=== PATIENT | male | born 1960 | race Caucasian/White ===

== ENCOUNTER 2017-11-22 14:49 | Inpatient (IN) | payer OTHER ==
[~2017-11-22] VITALS: Ht 162.6 cm; Wt 66.8 kg
[~2017-11-22 14:49] MED LIST: ASPI-390 PO; OXYC-57 PO
[2017-11-22] MEDS ORDERED: LABETALOL HCL IV 5 MG/ML 20ML IV STA (15:08)
--- NOTE | 2017-11-22 15:32 | EMERGENCY ROOM VISIT NOTE ---
History First contact with patient: 15:05 Chief Complaint: NEURO SYMPTOMS Stated Complaint: RIGHT HAND & RIGHT LEG NOT RIGHT, DIZZY History of Present Illness The patient is a 57 year old male who presents to the Emergency Room with complaints of right sided weakness that started this morning at 4 am. He reports trying to get out of bed this morning but could not move his lower extremity. He did also have some dizziness. His symptoms waxed and waned through out the day. Walking proved to be difficult. He had some weakness at around 1300. He denies any chest pain or shortness of breath. Denies dysarthria , dysphagia. Denies vision changes. Denies bowel/bladder incontinence. He smokes 2 PPD. He does not see a family doctor. He does have a history of uncontrolled htn- does not taking any meds Denies personal history of strokes/[place], Does have a family history. Review of Systems See above for pertinent positives & negatives. A total of 10 systems reviewed and were otherwise negative. Past Medical/Surgical History Medical Problems: (1) Cervical stenosis of spinal canal (2) Chest pain (3) HTN (hypertension) Surgical Problems: (1) Hx of cervical spine surgery Family History Hypertension Social History Smoking Status: Current Every Day Smoker Alcohol Use: none Drug Use: none Marital Status: Housing Status: lives with family Occupation Status: employed Current/Historical Medications Scheduled Aspirin (Aspirin EC Low Dose), 81 MG PO QAM Atorvastatin (Lipitor), 40 MG PO QAM Clopidogrel Bisulfate (Clopidogrel), 75 MG PO QAM Lisinopril (Lisinopril), 5 MG PO DAILY Metoprolol Tartrate (Lopressor) (Lopressor), 50 MG PO BID Nicotine (Nicoderm Cq), 1 PATCH EXT QAM Physical Exam Vital Signs Date Time Temp Pulse Resp B/P (MAP) Pulse Ox O2 Delivery O2 Flow Rate FiO2 11/22/17 17:03 89 11/22/17 16:50 211/136 11/22/17 16:44 76 18 231/131 98 Room Air 11/22/17 15:48 72 20 231/135 95 Room Air 11/22/17 15:44 76 24 249/139 95 Room Air 11/22/17 15:43 Room Air 11/22/17 15:31 80 24 230/140 96 11/22/17 15:06 87 11/22/17 15:01 97 28 249/148 97 Room Air 11/22/17 14:53 36.6 100 20 258/134 97 Room Air Physical Exam GENERAL: Patient is awake alert in no acute distress EYES: The conjunctivae are clear. The pupils are round and reactive. EARS, NOSE, MOUTH AND THROAT: Mucous membranes are moist NECK: The neck is nontender and supple. RESPIRATORY: Normal respiratory effort is noted there is no evidence of wheezing rhonchi or rales CARDIOVASCULAR: Regular rate and rhythm noted there no murmurs rubs or gallops normal S1 normal S2 GASTROINTESTINAL: The abdomen is soft. Bowel sounds are present in all quadrants. Abdomen is nontender PELVIS: The Pelvis is stable. No tenderness to palpation is noted. BACK: no CVA tenderness MUSCULOSKELETAL/EXTREMITIES: Full ROM at all extremities SKIN: There is no obvious evidence of any rash. There are no petechiae, pallor or cyanosis noted. NEUROLOGIC: Patient is awake alert and oriented x3, CN II-XII intact, Strength is 5/5 in upper and lower extremities, Sensation is intact grossly, normal [id number], no dysdiadochokinesis Medical Decision & Procedures Laboratory Results Test 11/22/17 15:24 11/22/17 15:45 Prothrombin Time 10.0 SECONDS (9.0-12.0) Prothromb Time International Ratio 1.0 (0.9-1.1) Activated Partial Thromboplast Time 25.0 SECONDS (21.0-31.0) Partial Thromboplastin Ratio 1.0 Total Bilirubin 0.2 mg/dl (0.2-1) Direct Bilirubin < 0.1 mg/dl (0-0.2) Aspartate Amino Transf (AST/SGOT) 15 U/L (15-37) Alanine Aminotransferase (ALT/SGPT) 22 U/L (12-78) Alkaline Phosphatase 61 U/L (45-117) Total Creatine Kinase 174 U/L (39-308) Creatine Kinase MB 2.9 ng/ml (0.5-3.6) Creatine Kinase MB Ratio 1.7 (0-3.0) Total Protein 8.1 gm/dl (6.4-8.2) Albumin 4.0 gm/dl (3.4-5.0) Lipase 109 U/L (73-393) Thyroid Stimulating Hormone (TSH) 2.630 uIu/ml (0.300-4.500) Hepatitis C Antibody Screen NEG (NEG) Urine Color YELLOW Urine Appearance CLEAR (CLEAR) Urine pH 7.0 (4.5-7.5) Urine Specific [place] 1.007 (1.000-1.030) Urine Protein NEG (NEG) Urine Glucose (UA) NEG (NEG) Urine Ketones NEG (NEG) Urine Occult Blood NEG (NEG) Urine Nitrite NEG (NEG) Urine Bilirubin NEG (NEG) Urine Urobilinogen NEG (NEG) Urine Leukocyte Esterase NEG (NEG) Urine WBC (Auto) 0 /hpf (0-5) Urine RBC (Auto) 0-4 /hpf (0-4) Urine Hyaline Casts (Auto) 0 /lpf (0-5) Urine Epithelial Cells (Auto) 0-5 /lpf (0-5) Urine Bacteria (Auto) NEG (NEG) Medications Administered Medications (Trade) Dose Ordered Sig/Song Route Start Time Stop Time Status Last Admin Dose Admin Labetalol HCl (Normodyne IV) 20 mg NOW STAT IV 11/22/17 15:08 11/22/17 15:11 DC 11/22/17 15:33 20 MG Hydralazine HCl (HydrALAZINE INJ) 10 mg NOW STAT IV. 11/22/17 16:05 11/22/17 16:06 DC 11/22/17 16:46 10 MG Aspirin (Aspirin Chew) 324 mg NOW STAT PO 11/22/17 16:18 11/22/17 16:19 DC 11/22/17 16:48 324 MG Medical Decision This is a 57 y/o M who presents with right arm/leg weakness that waxes and wanes x 10 hours. DDx: TIA, CVA, Infection, hypoglycemia, [place], metabolic derangements etc. His blood pressure was elevated on presentation at 240/130's. This was concerning for hypertensive emergency given neurological sx. He normally runs high (200/110). His exam in the ER does not show any focal weakness or deficits. EKG was normal. Head CT was negative for acute pathologies. Chest Xray was negative. CBC, CMP, U/A and Coags were normal. He was given Labetalol and Hydralazine in the ER. The case was discussed with [facility] for further evaluation. MRI was pending at time of consultation with Medicine. Blood Pressure Screening Patient's blood pressure: Elevated blood pressure Impression Primary Impression: Hypertensive emergency Additional Impression: Right sided weakness Departure Information Dispostion Being Evaluated By Hospitalist Prescriptions Lisinopril (Lisinopril) 5 Mg Tab 5 MG PO DAILY, #30 Prov: Matt Medina M.D. 11/25/17 Aspirin (Aspirin EC Low Dose) 81 Mg Ectab 81 MG PO QAM for 30 Days, #30 Prov: Matt Medina M.D. 11/24/17 Metoprolol Tartrate (Lopressor) (Lopressor) 50 Mg Tab 50 MG PO BID for 30 Days, #60 TAB Prov: Matt Medina M.D. 11/24/17 Atorvastatin (LIPITOR) 40 Mg Tab 40 MG PO QAM for 30 Days, #30 TAB Prov: Matt Medina M.D. 11/24/17 Clopidogrel Bisulfate (Clopidogrel) 75 Mg Tab 75 MG PO QAM for 30 Days, #30 TAB Continue for 3 months and then stop. Prov: Matt Medina M.D. 11/24/17 Nicotine (NICODERM CQ) 21 Mg/24 Hr Dis 1 PATCH EXT QAM for 30 Days, #30 Prov: Matt Medina M.D. 11/24/17 Referrals Scotty Wick PA-C (PCP) Patient Instructions My [facility] Problem Qualifiers
[2017-11-22 15:39] LABS: BASO % 0.2 %; BASO ABS # 0.02 K/uL (0-0.2); EOS % 2.6 %; EOS ABS # 0.24 K/uL (0-0.5); HEMATOCRIT 44.9 % (42-52); HEMOGLOBIN 15.5 g/dL (14.0-18.0); IG# 0.02 K/uL (0.00-0.02); LYMPH % 36.3 %; LYMPH ABS # 3.31 K/uL (1.2-3.4); MEAN CELL VOLUME 87.5 fL (80-100); MEAN CORPUSCULAR HEMOGLOBIN 30.2 pg (25-34); MEAN CORPUSCULAR HGB CONC 34.5 g/dl (32-36); MEAN PLATELET VOLUME 9.6 fL (7.4-10.4); MONO % 6.5 %; MONO ABS # 0.59 K/uL (0.11-0.59); NEUT % 54.2 %; NEUT ABS # 4.95 K/uL (1.4-6.5); PLATELET COUNT 301 K/uL (130-400); WHITE BLOOD COUNT 9.13 K/uL (4.8-10.8)
--- NOTE | 2017-11-22 15:45 | DIAGNOSTIC IMAGING REPORT ---
CHEST ONE VIEW PORTABLE CLINICAL HISTORY: Altered mental status. Weakness. COMPARISON STUDY: 01/07/2014 FINDINGS: The cardiac and mediastinal contours are normal. There is no evidence of focal pulmonary consolidation. There is no evidence of failure. No pleural effusions are visualized.[ There are postsurgical changes present within the cervical spine IMPRESSION: No active disease in the chest. Electronically signed by: Shreyas Amaral M.D. 11/22/2017 3:44 PM Dictated Date/Time: 11/22/2017 3:44 PM
--- NOTE | 2017-11-22 16:02 | DIAGNOSTIC IMAGING REPORT ---
HEAD WITHOUT CONTRAST (CT) CLINICAL HISTORY: 57 years-old Male with EVALUATE ALTERED MENTAL STATUS/WEAKNESS. Acutely altered mental status TECHNIQUE: Multiple axial CT images of the head were obtained without contrast. A dose lowering technique was utilized adhering to the principles of ALARA. CT DOSE: 614.27 mGy.cm COMPARISON: CT head 01/15/2014. FINDINGS: No acute intracranial hemorrhage, midline shift, intracranial mass, hydrocephalus, territorial ischemia or abnormal extra-axial collection. Ill-defined areas of low-attenuation within the periventricular subcortical white matter have progressed from prior study. Senescent calcifications of the lentiform nuclei. Vascular calcifications are seen at the level of the skull base. The calvarium is intact. The paranasal sinuses, mastoid air cells, and middle ear cavities are clear. IMPRESSION: 1. No acute intracranial abnormality. 2. Progression of ill-defined subcortical and periventricular areas of ill-defined low-attenuation from comparison study dated 01/15/2014 suggest underlying chronic microvascular ischemic changes. The above report was generated using voice recognition software. It may contain grammatical, syntax or spelling errors. Electronically signed by: Odilon Zarate M.D. 11/22/2017 4:01 PM Dictated Date/Time: 11/22/2017 3:58 PM
[2017-11-22] MEDS ORDERED: HydrALAZINE HCL 20 MG/ML VIAL IV. STA ×2 (16:05→17:26)
[2017-11-22 16:08] LABS: ALT/SGPT 22 U/L (12-78); BLOOD UREA NITROGEN 13 mg/dl (7-18); CALCIUM 9.2 mg/dl (8.5-10.1); CARBON DIOXIDE 26 mmol/L (21-32); CREATININE 1.28 mg/dl (0.60-1.40); GLUCOSE 89 mg/dl (70-99); LIPASE 109 U/L (73-393); POTASSIUM 4.1 mmol/L (3.5-5.1); SODIUM 137 mmol/L (136-145)
[2017-11-22 16:16] LABS: ALKALINE PHOSPHATASE 61 U/L (45-117); AST/SGOT 15 U/L (15-37); CKMB 2.9 ng/ml (0.5-3.6); TOTAL PROTEIN 8.1 gm/dl (6.4-8.2)
[2017-11-22] MEDS ORDERED: ASPIRIN 81 MG CHEW PO STA (16:18)
--- NOTE | 2017-11-22 16:58 | DIAGNOSTIC IMAGING REPORT ---
BRAIN WITHOUT CONTRAST HISTORY: 57 years-old Male stroke sx acute strokelike symptoms with decreased motor function of the right upper and lower extremities. COMPARISON: CT head of same day TECHNIQUE: Multiplanar multisequence MRI of the brain was obtained without contrast FINDINGS: The large [id number] news video editor localizer images demonstrate no gross abnormality. The midline structures including the corpus callosum, brainstem, optic chiasm, pituitary and pineal glands are unremarkable the sagittal T1 series. No cerebellar tonsillar herniation. Degenerative changes of the cervical spine are noted. Mild adenoid tonsillar thickening suggests tonsillar hyperplasia. There is no restricted diffusion to suggest acute or subacute infarction. There are 3 4 mm foci of mildly increased signal on the diffusion-weighted series involving the bilateral frontal lobes as seen on images 18 and 19 of series 4 with corresponding increased signal on the ADC map and T2 series suggesting T2 shine through. There is a 4 mm focus of increased T2 signal of the left parietal lobe, image 17 series 4 with intermediate signal on ADC series and increased T2/FLAIR signal. No acute intracranial hemorrhage, midline shift, abnormal extra-axial collections or hydrocephalus. Moderate multifocal areas of T2/FLAIR prolongation noted within the periventricular, deep and subcortical white matter of the cerebral hemispheres bilaterally. T2 hyperintense focus with intermediate FLAIR signal involves the mid right cerebellar hemisphere measuring 6 x 6 x 6 mm nicely seen on image 18 series 7 and image 7 series 5. This lesion appears to be somewhat multicystic with possibly a thin internal septation on the axial T2 series. Major flow voids at the level of the skull base appear patent. Mastoid air cells are clear. The orbits, scalp, calvarium and soft tissues are unremarkable. 10 x 7 mm T2 hyperintense ovoid focus involves the left nasopharynx in the region of the adenoid tonsils. IMPRESSION: 1. 4 mm focus of increased T2 and diffusion-weighted signal within the left parietal lobe demonstrates intermediate signal on the ADC series suspicious for tiny subacute lacunar infarction. No large acute or subacute infarction identified. 2. Moderate chronic microvascular ischemic changes. 3. 6 mm focus of increased T2/FLAIR signal within the mid right cerebellar hemisphere may reflect gliosis from remote lacunar infarction however demonstrates a somewhat atypical appearance. Confirmation with a follow-up brain MRI with contrast could be considered. 4. 10 mm ovoid cystic lesion of the left nasopharynx. The above report was generated using voice recognition software. It may contain grammatical, syntax or spelling errors. Electronically signed by: Odilon Zarate M.D. 11/22/2017 4:57 PM Dictated Date/Time: 11/22/2017 4:41 PM
--- NOTE | 2017-11-22 17:31 | EMERGENCY ROOM VISIT NOTE ---
History Report prepared by Kenny: Yaz Dial Under the Supervision of: Dr. Oneal Maldonado D.O. First contact with patient: 15:05 Chief Complaint: NEURO SYMPTOMS Stated Complaint: RIGHT HAND & RIGHT LEG NOT RIGHT, DIZZY Nursing Triage Summary: This morning he went to get out of bed and his right leg wouldn't work. This occured at [id number]. He returned to bed. He said he got back up at 0730. He states "My right leg wouldn't work". He sat in a chair at that point. When he attempted to go to the bathroom he relates "I was dragging it". He relates "I went to do paperwork and I couldn't read what I was writing." He relates "My hand never really got better." He went to [facility] by driving. "I shouldn't have drove. I was lightheaded. I was probably across the road more than I was on it. " He states "I dropped my coffee and when I went to clean it up, I couldn't get back up." History of Present Illness The patient is a 57 year old male who presents to the Emergency Room with complaints of waxing and waning right sided weakness starting 11 hours ago. The patient woke up from sleep around 0400 in the morning and found that his right leg would not work properly. This weakness has been waxing and waning throughout the day. He also reports right arm weakness. He has had difficulty using his right hand and holding objects. He has felt unsteady on his feet. This weakness is now resolved. He last felt weak around 2 hours ago. The patient denies any facial droop or speech changes. He currently smokes 2 packs per day. Source of History: patient Onset: 11 hours ago Position: arm (right), leg (right) Quality: other (weakness) Timing: waxes/wanes Note: Pt denies facial droop, speech changes. Review of Systems See HPI for pertinent positives & negatives. A total of 10 systems reviewed and were otherwise negative. Past Medical & Surgical Medical Problems: (1) HTN (hypertension) (2) No known problems (3) Right sided weakness Family History Hypertension Social History Smoking Status: Current Every Day Smoker Occupation Status: employed Current/Historical Medications No Active Prescriptions or Reported Meds Allergies Coded Allergies: No Known Allergies (Unverified , 11/22/17) Physical Exam Vital Signs Date Time Temp Pulse Resp B/P (MAP) Pulse Ox O2 Delivery O2 Flow Rate FiO2 11/22/17 17:33 85 18 195/112 97 Room Air 11/22/17 17:03 89 11/22/17 16:50 211/136 11/22/17 16:44 76 18 231/131 98 Room Air 11/22/17 15:48 72 20 231/135 95 Room Air 11/22/17 15:44 76 24 249/139 95 Room Air 11/22/17 15:43 Room Air 11/22/17 15:31 80 24 230/140 96 11/22/17 15:06 87 11/22/17 15:01 97 28 249/148 97 Room Air 11/22/17 14:53 36.6 100 20 258/134 97 Room Air Physical Exam VITAL SIGNS: were reviewed as above. GENERAL:Non-toxic in appearance. SKIN: Warm dry and pink. HEAD: Normocephalic and atraumatic. OROPHARYNX: Is clear and moist NECK: Supple without lymphadenopathy or meningismus. LUNGS: clear. HEART: Regular rate and rhythm. ABDOMEN: Soft and nontender. EXTREMITIES: Warm and well perfused. NEUROLOGICALLY: Awake alert and oriented without focal deficit. Cranial nerves 2 -12 are intact. There is no pronator drift. Cerebellar testing is within normal limits. There is no nystagmus. There is no facial droop. Speech is clear. Vision is grossly normal. MUSCULOSKELETAL: Good muscle tone. No evidence of trauma. Medical Decision & Procedures ER Provider Diagnostic Interpretation: X ray results and stated below per my interpretation and radiology interpretation. Radiology results as stated below per my review and radiologist interpretation: CHEST ONE VIEW PORTABLE CLINICAL HISTORY: Altered mental status. Weakness. COMPARISON STUDY: 01/07/2014 FINDINGS: The cardiac and mediastinal contours are normal. There is no evidence of focal pulmonary consolidation. There is no evidence of failure. No pleural effusions are visualized.[ There are postsurgical changes present within the cervical spine IMPRESSION: No active disease in the chest. Electronically signed by: Shreyas Amaral M.D. 11/22/2017 3:44 PM Dictated Date/Time: 11/22/2017 3:44 PM HEAD WITHOUT CONTRAST (CT) CLINICAL HISTORY: 57 years-old Male with EVALUATE ALTERED MENTAL STATUS/WEAKNESS. Acutely altered mental status TECHNIQUE: Multiple axial CT images of the head were obtained without contrast. A dose lowering technique was utilized adhering to the principles of ALARA. CT DOSE: 614.27 mGy.cm COMPARISON: CT head 01/15/2014. FINDINGS: No acute intracranial hemorrhage, midline shift, intracranial mass, hydrocephalus, territorial ischemia or abnormal extra-axial collection. Ill-defined areas of low-attenuation within the periventricular subcortical white matter have progressed from prior study. Senescent calcifications of the lentiform nuclei. Vascular calcifications are seen at the level of the skull base. The calvarium is intact. The paranasal sinuses, mastoid air cells, and middle ear cavities are clear. IMPRESSION: 1. No acute intracranial abnormality. 2. Progression of ill-defined subcortical and periventricular areas of ill-defined low-attenuation from comparison study dated 01/15/2014 suggest underlying chronic microvascular ischemic changes. The above report was generated using voice recognition software. It may contain grammatical, syntax or spelling errors. Electronically signed by: Odilon Zarate M.D. 11/22/2017 4:01 PM Dictated Date/Time: 11/22/2017 3:58 PM BRAIN WITHOUT CONTRAST HISTORY: 57 years-old Male stroke sx acute strokelike symptoms with decreased motor function of the right upper and lower extremities. COMPARISON: CT head of same day TECHNIQUE: Multiplanar multisequence MRI of the brain was obtained without contrast FINDINGS: The large gkavk-ta-lkay milking worker localizer images demonstrate no gross abnormality. The midline structures including the corpus callosum, brainstem, optic chiasm, pituitary and pineal glands are unremarkable the sagittal T1 series. No cerebellar tonsillar herniation. Degenerative changes of the cervical spine are noted. Mild adenoid tonsillar thickening suggests tonsillar hyperplasia. There is no restricted diffusion to suggest acute or subacute infarction. There are 3 4 mm foci of mildly increased signal on the diffusion-weighted series involving the bilateral frontal lobes as seen on images 18 and 19 of series 4 with corresponding increased signal on the ADC map and T2 series suggesting T2 shine through. There is a 4 mm focus of increased T2 signal of the left parietal lobe, image 17 series 4 with intermediate signal on ADC series and increased T2/FLAIR signal. No acute intracranial hemorrhage, midline shift, abnormal extra-axial collections or hydrocephalus. Moderate multifocal areas of T2/FLAIR prolongation noted within the periventricular, deep and subcortical white matter of the cerebral hemispheres bilaterally. T2 hyperintense focus with intermediate FLAIR signal involves the mid right cerebellar hemisphere measuring 6 x 6 x 6 mm nicely seen on image 18 series 7 and image 7 series 5. This lesion appears to be somewhat multicystic with possibly a thin internal septation on the axial T2 series. Major flow voids at the level of the skull base appear patent. Mastoid air cells are clear. The orbits, scalp, calvarium and soft tissues are unremarkable. 10 x 7 mm T2 hyperintense ovoid focus involves the left nasopharynx in the region of the adenoid tonsils. IMPRESSION: 1. 4 mm focus of increased T2 and diffusion-weighted signal within the left parietal lobe demonstrates intermediate signal on the ADC series suspicious for tiny subacute lacunar infarction. No large acute or subacute infarction identified. 2. Moderate chronic microvascular ischemic changes. 3. 6 mm focus of increased T2/FLAIR signal within the mid right cerebellar hemisphere may reflect gliosis from remote lacunar infarction however demonstrates a somewhat atypical appearance. Confirmation with a follow-up brain MRI with contrast could be considered. 4. 10 mm ovoid cystic lesion of the left nasopharynx. The above report was generated using voice recognition software. It may contain grammatical, syntax or spelling errors. Electronically signed by: Odilon Zarate M.D. 11/22/2017 4:57 PM Dictated Date/Time: 11/22/2017 4:41 PM Laboratory Results 11/22/17 15:24 Red Blood Count 5.13, Mean Corpuscular Volume 87.5, Mean Corpuscular Hemoglobin 30.2, Mean Corpuscular Hemoglobin Concent 34.5, Mean Platelet Volume 9.6, Neutrophils (%) (Auto) 54.2, Lymphocytes (%) (Auto) 36.3, Monocytes (%) (Auto) 6.5, Eosinophils (%) (Auto) 2.6, Basophils (%) (Auto) 0.2, Neutrophils # (Auto) 4.95, Lymphocytes # (Auto) 3.31, Monocytes # (Auto) 0.59, Eosinophils # (Auto) 0.24, Basophils # (Auto) 0.02 11/22/17 15:24 Test 11/22/17 15:24 11/22/17 15:45 White Blood Count 9.13 K/uL (4.8-10.8) Red Blood Count 5.13 M/uL (4.7-6.1) Hemoglobin 15.5 g/dL (14.0-18.0) Hematocrit 44.9 % (42-52) Mean Corpuscular Volume 87.5 fL (80-100) Mean Corpuscular Hemoglobin 30.2 pg (25-34) Mean Corpuscular Hemoglobin Concent 34.5 g/dl (32-36) Platelet Count 301 K/uL (130-400) Mean Platelet Volume 9.6 fL (7.4-10.4) Neutrophils (%) (Auto) 54.2 % Lymphocytes (%) (Auto) 36.3 % Monocytes (%) (Auto) 6.5 % Eosinophils (%) (Auto) 2.6 % Basophils (%) (Auto) 0.2 % Neutrophils # (Auto) 4.95 K/uL (1.4-6.5) Lymphocytes # (Auto) 3.31 K/uL (1.2-3.4) Monocytes # (Auto) 0.59 K/uL (0.11-0.59) Eosinophils # (Auto) 0.24 K/uL (0-0.5) Basophils # (Auto) 0.02 K/uL (0-0.2) RDW Standard Deviation 45.0 fL (36.4-46.3) RDW Coefficient of Variation 14.0 % (11.5-14.5) Immature Granulocyte % (Auto) 0.2 % Immature Granulocyte # (Auto) 0.02 K/uL (0.00-0.02) Prothrombin Time 10.0 SECONDS (9.0-12.0) Prothromb Time International Ratio 1.0 (0.9-1.1) Activated Partial Thromboplast Time 25.0 SECONDS (21.0-31.0) Partial Thromboplastin Ratio 1.0 Anion Gap 6.0 mmol/L (3-11) Est Creatinine Clear Calc Drug Dose 53.3 ml/min Estimated GFR () 71.5 Estimated GFR (Non- 61.7 BUN/Creatinine Ratio 10.2 (10-20) Calcium Level 9.2 mg/dl (8.5-10.1) Magnesium Level 2.5 mg/dl (1.8-2.4) Total Bilirubin 0.2 mg/dl (0.2-1) Direct Bilirubin < 0.1 mg/dl (0-0.2) Aspartate Amino Transf (AST/SGOT) 15 U/L (15-37) Alanine Aminotransferase (ALT/SGPT) 22 U/L (12-78) Alkaline Phosphatase 61 U/L (45-117) Total Creatine Kinase 174 U/L (39-308) Creatine Kinase MB 2.9 ng/ml (0.5-3.6) Creatine Kinase MB Ratio 1.7 (0-3.0) Troponin I < 0.015 ng/ml (0-0.045) Total Protein 8.1 gm/dl (6.4-8.2) Albumin 4.0 gm/dl (3.4-5.0) Lipase 109 U/L (73-393) Thyroid Stimulating Hormone (TSH) 2.630 uIu/ml (0.300-4.500) Urine Color YELLOW Urine Appearance CLEAR (CLEAR) Urine pH 7.0 (4.5-7.5) Urine Specific [place] 1.007 (1.000-1.030) Urine Protein NEG (NEG) Urine Glucose (UA) NEG (NEG) Urine Ketones NEG (NEG) Urine Occult Blood NEG (NEG) Urine Nitrite NEG (NEG) Urine Bilirubin NEG (NEG) Urine Urobilinogen NEG (NEG) Urine Leukocyte Esterase NEG (NEG) Urine WBC (Auto) 0 /hpf (0-5) Urine RBC (Auto) 0-4 /hpf (0-4) Urine Hyaline Casts (Auto) 0 /lpf (0-5) Urine Epithelial Cells (Auto) 0-5 /lpf (0-5) Urine Bacteria (Auto) NEG (NEG) Laboratory results as stated above per my review. Medications Administered Medications (Trade) Dose Ordered Sig/Song Route Start Time Stop Time Status Last Admin Dose Admin Labetalol HCl (Normodyne IV) 20 mg NOW STAT IV 11/22/17 15:08 11/22/17 15:11 DC 11/22/17 15:33 20 MG Hydralazine HCl (HydrALAZINE INJ) 10 mg NOW STAT IV. 11/22/17 16:05 11/22/17 16:06 DC 11/22/17 16:46 10 MG Aspirin (Aspirin Chew) 324 mg NOW STAT PO 11/22/17 16:18 11/22/17 16:19 DC 11/22/17 16:48 324 MG Hydralazine HCl (HydrALAZINE INJ) 20 mg NOW STAT IV. 11/22/17 17:26 11/22/17 17:27 DC 11/22/17 17:33 20 MG ECG Per My Interpretation Indication: weakness Rate (beats per minute): 93 Rhythm: normal sinus Findings: no ectopy, other (no ST elevation) ED Course 1523: Previous medical records were reviewed. The patient was evaluated in room C6. A complete history and physical examination was performed. 1508: Labetalol HCl 20 mg IV. 1605: Hydralazine HCl 10 mg IV. 1618: Aspirin 324 mg PO. 1626: [facility]'s [facility] He will be evaluated for further management. 1726: Hydralazine HCl 20 mg IV. Medical Decision Differential includes acute coronary syndrome, myocardial infarction, CVA, TIA, anemia, infection, pneumonia, UTI, pyelonephritis, poor nutrition, dehydration, electrolyte disturbance,hypoglycemia. The patient was seen with the resident. This is a 57-year-old male who presents to the ED with a chief complaint of strokelike symptoms. The patient presented stating that his symptoms started 4 AM when he awoke from bed. He states that he got out of bed and his right leg was not working. He also reports that his right arm was not working. He denied having any speech difficulties. The patient states that his symptoms waxed and waned all day. Until around 2:00 where his symptoms seem to have resolved. The patient states that his last symptoms were at 1:00 when he went to sheets and he could not hold his coffee. The patient reports that he does not see a doctor. His normal blood pressure is around 200/110. His blood pressure today is 258 of 134 on his initial evaluation. He reports that he smokes 2 packs per day. His exam did not reveal any focal deficits. His stroke scale was 0. His exam was unremarkable. A 12-lead EKG shows normal sinus rhythm. CT scan of the brain did not show acute process, chest x-ray was negative for acute disease, CBC is normal, complete metabolic panel was normal, coagulation studies are normal and a urinalysis was normal. The patient was treated with IV labetalol 20 mg, this improved his slight tachycardia but his blood pressure remained elevated. He was given hydralazine 10 mg IV and 20mg IV as well as aspirin p.o. The patient will be seen by the hospitalist service for further evaluation and care. MRI did show 2 small subacute infarcts. Medication Reconcilliation Current Medication List: was personally reviewed by me Blood Pressure Screening Patient's blood pressure: Elevated blood pressure Blood pressure disposition: Referred to PCP Consults Time Called: 1619 Consulting Physician: Aurelia Loving PA-C [facility] hospitalist Returned Call: [phone] Patient's case with discussed with her. He will be evaluated for further management. Impression Primary Impression: TIA (transient ischemic attack) Additional Impression: Hypertensive urgency Scribe Attestation The scribe's documentation has been prepared under my direction and personally reviewed by me in its entirety. I confirm that the note above accurately reflects all work, treatment, procedures, and medical decision making performed by me. Departure Information Dispostion Being Evaluated By Hospitalist Prescriptions No Active Prescriptions or Reported Meds Referrals Scotty Wick PA-C (PCP) Patient Instructions My [facility] Problem Qualifiers
[2017-11-22] MEDS ORDERED: ONDANSETRON INJ 2 MG/ML 2 ML VIAL IV PRN (17:45)
[2017-11-22] MEDS ORDERED: NITROGLYCERIN 0.4 MG SL PER TAB CHARGE SL PRN (17:45)
[2017-11-22] MEDS ORDERED: PHARMACIST DISCHARGE MED REC CONSULT PRN (17:45)
[2017-11-22] MEDS ORDERED: METOPROLOL TARTRATE 50 MG TAB PO STA (17:52)
[2017-11-22] MEDS ORDERED: CLOPIDOGREL BISULFATE 300 MG TAB PO STA (17:55)
[2017-11-22] MEDS ORDERED: NURSING VERBAL MED ORDER ONE (18:45)
[2017-11-22 18:48] VITALS: BP 171/89; PULSE 81; TEMP 36.7; O2SAT 96
[2017-11-22 19:07] VITALS: BP 171/89; PULSE 81; TEMP 36.7; O2SAT 96; Ht 162.6 cm; Wt 66.8 kg
--- NOTE | 2017-11-22 19:21 | History and Physical ---
History & Physical Date & Time of Service: Nov 22, 2017 at 18:07 Chief Complaint: Right Hand & Right Leg Not Right, Dizzy Primary Care Physician: No Doctor, Assigned History of Present Illness Source: patient, clinic records, hospital records Pt is 57 y/o M with PMH HTN, smoker presented to ER with c/o R sided weakness. Patient reports went to bed at 8 PM last night. Woke up this morning at 4 AM as he got out of bed he noticed right leg weakness and was unable to walk. Patient states he was dragging his right leg. He also noticed right arm discomfort and right hand weakness. 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 Reports symptoms getting better and then worse again throughout the day. He dropped his coffee out of his right hand, but down to pick it up and then could not stand back up due to right leg weakness. [place] a little lightheaded this morning , denies syncope or KAPLAN. No prior treatment. Patient reports known history of hypertension however has not followed up with PCP for years and is not currently on any medications. States he gained insurance at the beginning of this year and is assigned to [facility] PCP in [place], however has not yet seen. Patient reports smoking 2 packs a day of cigarettes 40 years. Chewing tobacco once daily. Denies history of known coronary artery disease or stroke in the past. Denies fever/chills, diaphoresis, N/V/D/C, KAPLAN, vision changes, neck pain, CP, SOB, orthopnea, palpitations, cough, sore throat, choking, otalgia, rhinorrhea, abdominal pain, paresthesias, extremity edema, rashes, urinary symptoms. In the ER patient hypertensive to 258/134. Given labetalol 20 mg IV, hydralazine 10 mg IV, aspirin. BP down to 210/117. Another 20 mg of IV hydralazine was ordered. Past Medical/Surgical History Medical Problems: (1) Cervical stenosis of spinal canal Status: Chronic (2) Chest pain Status: Resolved (3) HTN (hypertension) Status: Chronic Surgical Problems: (1) Hx of cervical spine surgery Permanent Comment: C4-C7 anterior cervical discectomy & fusion Status: Resolved Family History Diabetes mellitus FH: CAD (coronary artery disease) Hypertension Social History Smoking Status: Current Every Day Smoker (2 ppd x 40 years) Smokeless Tobacco Use: chews tobacco once daily Alcohol Use: 1-2 beers a month Drug Use: none Housing status: lives alone Occupational Status: employed Allergies Coded Allergies: No Known Allergies (Unverified , 11/22/17) Home Medications No Active Prescriptions or Reported Meds Review of Systems Constitutional: No fever, No chills, No sweats, No weight loss Eyes: No worsening of vision, No eye pain, No redness, No discharge, No diplopia ENT: No hearing loss, No unusual epistaxis, No nasal symptoms, No sore throat, No tinnitus, No trouble swallowing Respiratory: No cough, No sputum, No wheezing, No shortness of breath, No dyspnea on exertion, No dyspnea at rest, No hemoptysis Cardiovascular: No chest pain, No orthopnea, No PND, No edema, No claudication , No palpitations Abdomen: No pain, No nausea, No vomiting, No diarrhea, No constipation, No GI bleeding Musculoskeletal: No joint pain, No muscle pain, No swelling, No calf pain Genitourinary - Male: No hematuria, No dysuria, No urinary frequency, No urinary urgency Neurologic: + problem reported (see HPI) Psychiatric: No depression symptoms, No anxiety, No substance abuse Endocrine: No excessive thirst, No excessive urination Hematologic / Lymphatic: No abnormal bleeding/bruising, No clotting problems, No swollen lymph nodes, No night sweats Integumentary: No rash, No itch Physical Exam Vital Signs Date Time Temp Pulse Resp B/P (MAP) Pulse Ox O2 Delivery O2 Flow Rate FiO2 11/22/17 17:33 85 18 195/112 97 Room Air 11/22/17 17:03 89 11/22/17 16:50 211/136 11/22/17 16:44 76 18 231/131 98 Room Air 11/22/17 15:48 72 20 231/135 95 Room Air 11/22/17 15:44 76 24 249/139 95 Room Air 11/22/17 15:43 Room Air 11/22/17 15:31 80 24 230/140 96 11/22/17 15:06 87 11/22/17 15:01 97 28 249/148 97 Room Air 11/22/17 14:53 36.6 100 20 258/134 97 Room Air General Appearance: WD/WN, no apparent distress Head: normocephalic, atraumatic Eyes: normal inspection, PERRL, EOMI, sclerae normal ENT: hearing grossly normal, pharynx normal, + pertinent finding (mucous membranes moist) Neck: supple, no JVD, trachea midline Respiratory/Chest: lungs clear, normal breath sounds, no respiratory distress Cardiovascular: regular rate, rhythm, no murmur Abdomen/GI: normal bowel sounds, non tender, soft Extremities/Musculoskelatal: normal capillary refill, no pedal edema, non- tender Neurologic/Psych: alert, normal mood/affect, oriented x 3, + pertinent finding (no facial drooping. clear speech, tongue midline, ROM bilateral arms and legs intact. 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 5/5 strength bilateral arms and extremities at this time. negative romberg. with walking pt with staggered gait and rightward drift.) Skin: normal color, warm/dry Diagnostics Laboratory Results Results Past 24 Hours Test 11/22/17 15:24 11/22/17 15:45 Range/Units White Blood Count 9.13 4.8-10.8 K/uL Red Blood Count 5.13 4.7-6.1 M/uL Hemoglobin 15.5 14.0-18.0 g/dL Hematocrit 44.9 42-52 % Mean Corpuscular Volume 87.5 80-100 fL Mean Corpuscular Hemoglobin 30.2 25-34 pg Mean Corpuscular Hemoglobin Concent 34.5 32-36 g/dl Platelet Count 301 130-400 K/uL Mean Platelet Volume 9.6 7.4-10.4 fL Neutrophils (%) (Auto) 54.2 % Lymphocytes (%) (Auto) 36.3 % Monocytes (%) (Auto) 6.5 % Eosinophils (%) (Auto) 2.6 % Basophils (%) (Auto) 0.2 % Neutrophils # (Auto) 4.95 1.4-6.5 K/uL Lymphocytes # (Auto) 3.31 1.2-3.4 K/uL Monocytes # (Auto) 0.59 0.11-0.59 K/uL Eosinophils # (Auto) 0.24 0-0.5 K/uL Basophils # (Auto) 0.02 0-0.2 K/uL RDW Standard Deviation 45.0 36.4-46.3 fL RDW Coefficient of Variation 14.0 11.5-14.5 % Immature Granulocyte % (Auto) 0.2 % Immature Granulocyte # (Auto) 0.02 0.00-0.02 K/uL Prothrombin Time 10.0 9.0-12.0 SECONDS Prothromb Time International Ratio 1.0 0.9-1.1 Activated Partial Thromboplast Time 25.0 21.0-31.0 SECONDS Partial Thromboplastin Ratio 1.0 Sodium Level 137 136-145 mmol/L Potassium Level 4.1 3.5-5.1 mmol/L Chloride Level 105 98-107 mmol/L Carbon Dioxide Level 26 21-32 mmol/L Anion Gap 6.0 3-11 mmol/L Blood Urea Nitrogen 13 7-18 mg/dl Creatinine 1.28 0.60-1.40 mg/dl Est Creatinine Clear Calc Drug Dose 53.3 ml/min Estimated GFR () 71.5 Estimated GFR (Non- 61.7 BUN/Creatinine Ratio 10.2 10-20 Random Glucose 89 70-99 mg/dl Calcium Level 9.2 8.5-10.1 mg/dl Magnesium Level 2.5 1.8-2.4 mg/dl Total Bilirubin 0.2 0.2-1 mg/dl Direct Bilirubin < 0.1 0-0.2 mg/dl Aspartate Amino Transf (AST/SGOT) 15 15-37 U/L Alanine Aminotransferase (ALT/SGPT) 22 12-78 U/L Alkaline Phosphatase 61 45-117 U/L Total Creatine Kinase 174 39-308 U/L Creatine Kinase MB 2.9 0.5-3.6 ng/ml Creatine Kinase MB Ratio 1.7 0-3.0 Troponin I < 0.015 0-0.045 ng/ml Total Protein 8.1 6.4-8.2 gm/dl Albumin 4.0 3.4-5.0 gm/dl Lipase 109 73-393 U/L Thyroid Stimulating Hormone (TSH) 2.630 0.300-4.500 uIu/ml Urine Color YELLOW Urine Appearance CLEAR CLEAR Urine pH 7.0 4.5-7.5 Urine Specific [place] 1.007 1.000-1.030 Urine Protein NEG NEG Urine Glucose (UA) NEG NEG Urine Ketones NEG NEG Urine Occult Blood NEG NEG Urine Nitrite NEG NEG Urine Bilirubin NEG NEG Urine Urobilinogen NEG NEG Urine Leukocyte Esterase NEG NEG Urine WBC (Auto) 0 0-5 /hpf Urine RBC (Auto) 0-4 0-4 /hpf Urine Hyaline Casts (Auto) 0 0-5 /lpf Urine Epithelial Cells (Auto) 0-5 0-5 /lpf Urine Bacteria (Auto) NEG NEG Diagnostic Radiology CXR: IMPRESSION: No active disease in the chest. CT HEAD: IMPRESSION: 1. No acute intracranial abnormality. 2. Progression of ill-defined subcortical and periventricular areas of ill-defined low-attenuation from comparison study dated 01/15/2014 suggest underlying chronic microvascular ischemic changes. MRI HEAD W/O CONTRAST: IMPRESSION: 1. 4 mm focus of increased T2 and diffusion-weighted signal within the left parietal lobe demonstrates intermediate signal on the ADC series suspicious for tiny subacute lacunar infarction. No large acute or subacute infarction identified. 2. Moderate chronic microvascular ischemic changes. 3. 6 mm focus of increased T2/FLAIR signal within the mid right cerebellar hemisphere may reflect gliosis from remote lacunar infarction however demonstrates a somewhat atypical appearance. Confirmation with a follow-up brain MRI with contrast could be considered. 4. 10 mm ovoid cystic lesion of the left nasopharynx. EKG EKG: rate 93, NSR Read by associate professor of art: Normal sinus rhythm Possible Left atrial enlargement Nonspecific ST and T wave abnormality Abnormal ECG When compared with ECG of 16-JAN-2014 05:00, Nonspecific T wave abnormality now evident in Lateral leads Confirmed by ERIN REA ([id number]) on 11/22/2017 4:44:45 PM Impression Assessment and Plan RIGHT SIDED WEAKNESS/HYPERTENSIVE EMERGENCY Pt with hx untreated HTN, smoker who woke up at 4am today with R arm and R leg weakness with waxing and waning symptoms throughout the day. Denies KAPLAN, CP. In ER hypertensive at 258/134. Pt given labetalol 20mg IV, hydralazine 10mg IV and hydralazine 20mg IV. BP down to 195/112. MRI: 4 mm focus of increased T2 and diffusion-weighted signal within the left parietal lobe demonstrates intermediate signal on the ADC series suspicious for tiny subacute lacunar infarction. No large acute or subacute infarction identified. 2. Moderate chronic microvascular ischemic changes. 3. 6 mm focus of increased T2/FLAIR signal within the mid right cerebellar hemisphere may reflect gliosis from remote lacunar infarction however demonstrates a somewhat atypical appearance. Confirmation with a follow-up brain MRI with contrast could be considered. 4. 10 mm ovoid cystic lesion of the left nasopharynx. -tele to monitor for any arrhythmias -neuro checks Q4H -lopressor 50mg po BID -ASA, plavix, statin -neurology consult -U/S carotids -MRA head, attention kaw of [place] -echo -trend troponin -PT/OT consult DVT Prophylaxis -lovenox Disposition admit tele Full Code Pt reports is to follow with PCP at [facility] in [place], pt hasn't been seen yet. Pt hasn't been seen by PCP for years Pt was seen with Dr Medina. See addendum Attending Addendum: The patient was seen and examined in ER H/O HTN on no medication and heavy smoker and does not want ot quit. Admitted with Hypertensive emergency and stroke like symptoms Feels better during my exam O/E Hemodynamically stable Chest-clear to ausucltate bilaterally Heart-regular Extremities-negative for edema Labs and Imaging studies were reviewed Agree with the assessment and plan. Dr Winston Medina Resuscitation Status Full code VTE Prophylaxis Will order VTE Prophylaxis: Yes
[2017-11-22] MEDS: NICOTINE 21 MG/24 HR TDSY EXT SCH (19:22)
[2017-11-22] MEDS: ENOXAPARIN 40 MG/0.4 ML SYR SC SCH (21:07)
--- NOTE | 2017-11-22 21:12 | DIAGNOSTIC IMAGING REPORT ---
MRA HEAD WITHOUT CONTRAST HISTORY: 57 years-old Male stroke, focus on [place] acute strokelike symptoms COMPARISON: Brain MRI of same day TECHNIQUE: MRA of the head was obtained without contrast utilizing 3-D [id number] sequencing with MIP reformats. All measurements were obtained according to NASCET criteria. FINDINGS: Large [id number] heel cutter localizer images demonstrate no gross abnormality. The bilateral internal carotid arteries, middle cerebral and anterior cerebral arteries are widely patent and within normal limits. The anterior communicating artery is also unremarkable. Minimal luminal narrowing of the bilateral cavernous and clinoid portions of the internal carotid arteries bilaterally, likely secondary to atherosclerotic plaquing without high-grade stenosis. The imaged bilateral vertebral arteries, basilar artery and posterior cerebral arteries are within normal limits and appear widely patent. There is no aneurysm, dissection, high-grade stenosis or proximal branch occlusion identified. There is approximately 50% luminal narrowing involving the V4 segment left vertebral artery, please see image 24 series 4 and image 1 of series 401. IMPRESSION: 1. No high-grade stenosis, aneurysm, proximal branch occlusion or dissection. 2. Approximately 50% luminal narrowing involves the V4 segment left vertebral artery, likely secondary to underlying atherosclerotic plaquing. The above report was generated using voice recognition software. It may contain grammatical, syntax or spelling errors. Electronically signed by: Odilon Zarate M.D. 11/22/2017 9:11 PM Dictated Date/Time: 11/22/2017 9:05 PM
--- NOTE | 2017-11-22 21:21 | DIAGNOSTIC IMAGING REPORT ---
CAROTID DOPPLER NECK ART CLINICAL HISTORY: 57 years-old Male with stroke. Acute strokelike symptoms COMPARISON: MRA of the head of same day TECHNIQUE: Multiple real time sonographic images of the carotid bifurcations were obtained assessing parikh scale, color Doppler and spectral wave form appearance FINDINGS: Blood pressure within the right upper extremity was measured at 180/105 and within the left upper extremity was measured at 170/90. RIGHT INTERNAL CAROTID: The peak systolic velocity measured 121 cm/sec. The end diastolic velocity measured 40 cm/sec. The ICA to CCA ratio measured 1.7 which correlates with a stenosis of 0-50%. Moderate mixed plaquing of the right carotid bulb. LEFT INTERNAL CAROTID: The peak systolic velocity measured 131 cm/sec within the proximal left ICA. The end diastolic velocity measured 37 cm/sec. The ICA to CCA ratio measured 1.6 which correlates with a stenosis of 50-69%. Moderate mixed plaquing of the left carotid bulb. There is normal antegrade vertebral flow bilaterally. IMPRESSION: 1. Moderate mixed plaquing of the left carotid bulb results in elevated peak systolic velocity of the proximal left internal carotid artery correlating with 50-69% stenosis. 2. Normal antegrade vertebral flow bilaterally. The above report was generated using voice recognition software. It may contain grammatical, syntax or spelling errors. Electronically signed by: Odilon Zarate M.D. 11/22/2017 9:20 PM Dictated Date/Time: 11/22/2017 9:16 PM
[2017-11-22 23:38] VITALS: BP 169/77; PULSE 88; TEMP 37.1; O2SAT 95
[2017-11-22] MEDS: ACETAMINOPHEN 325 MG TAB PO PRN (23:56)
[2017-11-23] VITALS (9 sets, daily range): BP systolic 139–206; BP diastolic 78–110; PULSE 65–85; TEMP 36.2–36.9; O2SAT 95–98
[2017-11-23] MEDS: ACETAMINOPHEN 325 MG TAB PO PRN ×2 (05:40→11:43)
[2017-11-23 05:47] LABS: BASO % 0.2 %; BASO ABS # 0.02 K/uL (0-0.2); EOS % 1.9 %; EOS ABS # 0.17 K/uL (0-0.5); HEMOGLOBIN 14.7 g/dL (14.0-18.0); IG# 0.01 K/uL (0.00-0.02); LYMPH % 27.5 %; LYMPH ABS # 2.46 K/uL (1.2-3.4); MEAN CELL VOLUME 86.9 fL (80-100); MEAN CORPUSCULAR HEMOGLOBIN 29.7 pg (25-34); MEAN CORPUSCULAR HGB CONC 34.2 g/dl (32-36); MEAN PLATELET VOLUME 9.5 fL (7.4-10.4); MONO % 6.2 %; MONO ABS # 0.55 K/uL (0.11-0.59); NEUT % 64.1 %; NEUT ABS # 5.73 K/uL (1.4-6.5); PLATELET COUNT 289 K/uL (130-400); RED CELL DISTRIBUTION WIDTH CV 14.2 % (11.5-14.5); RED CELL DISTRIBUTION WIDTH SD 44.7 fL (36.4-46.3); WHITE BLOOD COUNT 8.94 K/uL (4.8-10.8)
[2017-11-23 06:16] LABS: CALCIUM 8.9 mg/dl (8.5-10.1); CREATININE 1.45 mg/dl (0.60-1.40)
[2017-11-23 07:16] LABS: HEMOGLOBIN A1C 6.1 % (4.5-5.6)
[2017-11-23] MEDS: ASPIRIN 81 MG ECTAB PO SCH (08:42)
[2017-11-23] MEDS: CLOPIDOGREL BISULFATE 75 MG TAB PO SCH (08:42)
[2017-11-23] MEDS: METOPROLOL TARTRATE 50 MG TAB PO SCH ×2 (08:42→20:50)
[2017-11-23] MEDS: NICOTINE 21 MG/24 HR TDSY EXT SCH (08:42)
[2017-11-23] MEDS ORDERED: HydrALAZINE HCL 20 MG/ML VIAL IV. ONE (11:15)
[2017-11-23] MEDS: ATORVASTATIN 40 MG TAB PO SCH (12:36)
--- NOTE | 2017-11-23 13:47 | Neurology Consultation ---
Neurology Consultation Date of Consultation: Nov 23, 2017. Attending Physician: Matt Medina M.D. Primary Care Physician: No Doctor, Assigned Reason for Consultation: right sided weakness History of Present Illness Source: patient Bryce is a 57 year old male with PMH HTN, migraines, tobacco abuse presented to ER with c/o R sided weakness. He went to bed last night and woke at 4 AM as he got out of bed he noticed right leg weakness and was unable to walk along with right arm weakness. Craig a little lightheaded this morning. He was diagnosed with HTN in the past but does not follow with a PCP and is not on any medications. He states the leg weakness resolved around 1p but the hand weakness continued until this am. He is a 2 packs a day cig 40 years smoker and chews tobacco once daily. Denies history of known coronary artery disease or stroke in the past. however his family has a strong history of heart disease no stroke history. He currently has a headache and states he has had migraines for many years but no recent complaint of them. In the past he would have visual aura with is migraines but no complex migraine symptoms. denies CP, SOB, abdominal pain, current one sided weakness, numbness tingling, pain, N, V, vision changes, swallowing issues. Past Medical/Surgical History Medical Problems: (1) Hypertensive urgency Status: Acute (2) TIA (transient ischemic attack) Status: Acute Social History Smoking Status: Current every day smoker Smokeless Tobacco Use: chews tobacco once daily Alcohol Use: 1-2 beers a month Drug Use: none Occupation Status: employed Allergies Coded Allergies: No Known Allergies (Unverified , 11/22/17) Current Inpatient Medications Current Inpatient Medications Medications (Trade) Dose Ordered Sig/Song Route Start Time Stop Time Status Last Admin Dose Admin Aspirin (Ecotrin Tab) 81 mg QAM PO 11/23/17 09:00 12/23/17 08:59 11/23/17 08:42 81 MG Clopidogrel Bisulfate (plAVix TAB) 75 mg QAM PO 11/23/17 09:00 12/23/17 08:59 11/23/17 08:42 75 MG Miscellaneous Information (Pharmacist Discharge Med Rec Consult) 1 ea UD PRN N/A 11/22/17 17:45 12/22/17 17:44 Enoxaparin Sodium (Lovenox Inj) 40 mg QPM SC 11/22/17 21:00 12/22/17 20:59 11/22/17 21:07 40 MG Acetaminophen (Tylenol Tab) 650 mg Q4H PRN PO 11/22/17 17:45 12/22/17 17:44 11/23/17 11:43 650 MG Ondansetron HCl (Zofran Inj) 4 mg Q6H PRN IV 11/22/17 17:45 12/22/17 17:44 11/22/17 21:54 4 MG Nitroglycerin (Nitrostat Tab) 0.4 mg UD PRN SL 11/22/17 17:45 12/22/17 17:44 Metoprolol Tartrate (Lopressor Tab) 50 mg BID PO 11/23/17 09:00 12/23/17 08:59 11/23/17 08:42 50 MG Nicotine (Nicoderm Cq 21MG Patch) 1 patch QAM EXT 11/22/17 19:00 12/22/17 18:59 11/23/17 08:42 1 PATCH Miscellaneous (Remove Nicoderm Patch) 1 ea QPM N/A 11/23/17 08:59 12/23/17 08:58 11/23/17 08:42 1 EA Clonidine HCl (Catapres Tab) 0.1 mg Q6H PRN PO 11/23/17 11:15 12/23/17 11:14 Atorvastatin Calcium (Lipitor Tab) 40 mg QAM PO 11/23/17 13:00 12/23/17 12:59 11/23/17 12:36 40 MG Physical Exam Vital Signs (Past 24 Hrs): Date Time Temp Pulse Resp B/P (MAP) Pulse Ox O2 Delivery O2 Flow Rate FiO2 11/23/17 12:00 Room Air 11/23/17 11:39 173/91 (118) 11/23/17 11:09 36.6 65 18 194/103 (133) 97 206/110 (142) 11/23/17 08:00 Room Air 11/23/17 07:03 36.8 71 18 176/91 (119) 98 11/23/17 04:00 Room Air 11/23/17 03:50 36.8 85 19 160/83 (108) 95 Room Air 11/23/17 00:02 Room Air 11/22/17 23:38 37.1 88 20 169/77 (107) 95 Room Air 11/22/17 20:00 Room Air 11/22/17 19:07 36.7 81 20 171/89 96 Room Air 11/22/17 18:48 36.7 81 20 171/89 (116) 96 Room Air 11/22/17 17:33 85 18 195/112 97 Room Air 11/22/17 17:03 89 11/22/17 16:50 211/136 11/22/17 16:44 76 18 231/131 98 Room Air 11/22/17 15:48 72 20 231/135 95 Room Air 11/22/17 15:44 76 24 249/139 95 Room Air 11/22/17 15:43 Room Air 11/22/17 15:31 80 24 230/140 96 11/22/17 15:06 87 11/22/17 15:01 97 28 249/148 97 Room Air 11/22/17 14:53 36.6 100 20 258/134 97 Room Air Physical Exam: Constitutional: appearance nourished, healthy and normal Ears, Nose, Mouth and Throat: mucous membranes moist, no injection and skin normal, eyes normal Cardiovascular: normal S-1 and S-2 and regular rate and rhythm Respiratory: course breath sounds Musculoskeletal: no peripheral edema and good distal pulses Skin: no stigmata of neurocutaneous disease noted and normal and intact Eyes: extraocular muscles intact (EOMI) and pupils equal, round and reactive to light (PERRL) NEUROLOGIC EXAMINATION: Mental status: Alert and interactive Oriented to full date and location Oriented to person Speech fluent with no evidence of aphasia Cranial Nerves smile eye brow raise symmetric Reflexes: Deep tendon reflexes were symmetrical and graded 2/5. Plantar responses were flexor. Sensory: cool touch, vibration GT proprioception intact Coordination: Romberg absent Gait/Stance: Posture lying in bed, walking in room with tandem gait Motor: Negative for pronator drift of out stretched arms with eyes closed. Strength: biceps triceps deltoids hand director supplier quality 5/5, hip flex 5/5, plantar flex ext 5/5 bilaterally Laboratory Results Past 24 Hours: 11/23/17 05:21 Red Blood Count 4.95, Mean Corpuscular Volume 86.9, Mean Corpuscular Hemoglobin 29.7, Mean Corpuscular Hemoglobin Concent 34.2, Mean Platelet Volume 9.5, Neutrophils (%) (Auto) 64.1, Lymphocytes (%) (Auto) 27.5, Monocytes (%) (Auto) 6.2, Eosinophils (%) (Auto) 1.9, Basophils (%) (Auto) 0.2, Neutrophils # (Auto) 5.73, Lymphocytes # (Auto) 2.46, Monocytes # (Auto) 0.55, Eosinophils # (Auto) 0.17, Basophils # (Auto) 0.02 11/23/17 05:21 Test 11/22/17 15:24 11/22/17 15:45 11/23/17 05:21 Prothrombin Time 10.0 SECONDS (9.0-12.0) Prothromb Time International Ratio 1.0 (0.9-1.1) Activated Partial Thromboplast Time 25.0 SECONDS (21.0-31.0) Partial Thromboplastin Ratio 1.0 Total Bilirubin 0.2 mg/dl (0.2-1) Direct Bilirubin < 0.1 mg/dl (0-0.2) Aspartate Amino Transf (AST/SGOT) 15 U/L (15-37) Alanine Aminotransferase (ALT/SGPT) 22 U/L (12-78) Alkaline Phosphatase 61 U/L (45-117) Total Creatine Kinase 174 U/L (39-308) Creatine Kinase MB 2.9 ng/ml (0.5-3.6) Creatine Kinase MB Ratio 1.7 (0-3.0) Troponin I < 0.015 ng/ml (0-0.045) Total Protein 8.1 gm/dl (6.4-8.2) Albumin 4.0 gm/dl (3.4-5.0) Lipase 109 U/L (73-393) Thyroid Stimulating Hormone (TSH) 2.630 uIu/ml (0.300-4.500) Hepatitis C Antibody Screen NEG (NEG) Urine Color YELLOW Urine Appearance CLEAR (CLEAR) Urine pH 7.0 (4.5-7.5) Urine Specific [place] 1.007 (1.000-1.030) Urine Protein NEG (NEG) Urine Glucose (UA) NEG (NEG) Urine Ketones NEG (NEG) Urine Occult Blood NEG (NEG) Urine Nitrite NEG (NEG) Urine Bilirubin NEG (NEG) Urine Urobilinogen NEG (NEG) Urine Leukocyte Esterase NEG (NEG) Urine WBC (Auto) 0 /hpf (0-5) Urine RBC (Auto) 0-4 /hpf (0-4) Urine Hyaline Casts (Auto) 0 /lpf (0-5) Urine Epithelial Cells (Auto) 0-5 /lpf (0-5) Urine Bacteria (Auto) NEG (NEG) White Blood Count 8.94 K/uL (4.8-10.8) Red Blood Count 4.95 M/uL (4.7-6.1) Hemoglobin 14.7 g/dL (14.0-18.0) Hematocrit 43.0 % (42-52) Mean Corpuscular Volume 86.9 fL (80-100) Mean Corpuscular Hemoglobin 29.7 pg (25-34) Mean Corpuscular Hemoglobin Concent 34.2 g/dl (32-36) Platelet Count 289 K/uL (130-400) Mean Platelet Volume 9.5 fL (7.4-10.4) Neutrophils (%) (Auto) 64.1 % Lymphocytes (%) (Auto) 27.5 % Monocytes (%) (Auto) 6.2 % Eosinophils (%) (Auto) 1.9 % Basophils (%) (Auto) 0.2 % Neutrophils # (Auto) 5.73 K/uL (1.4-6.5) Lymphocytes # (Auto) 2.46 K/uL (1.2-3.4) Monocytes # (Auto) 0.55 K/uL (0.11-0.59) Eosinophils # (Auto) 0.17 K/uL (0-0.5) Basophils # (Auto) 0.02 K/uL (0-0.2) RDW Standard Deviation 44.7 fL (36.4-46.3) RDW Coefficient of Variation 14.2 % (11.5-14.5) Immature Granulocyte % (Auto) 0.1 % Immature Granulocyte # (Auto) 0.01 K/uL (0.00-0.02) Anion Gap 6.0 mmol/L (3-11) Est Creatinine Clear Calc Drug Dose 47.1 ml/min Estimated GFR () 61.5 Estimated GFR (Non- 53.1 BUN/Creatinine Ratio 10.0 (10-20) Estimated Average Glucose 128 mg/dl Hemoglobin A1c 6.1 % (4.5-5.6) Calcium Level 8.9 mg/dl (8.5-10.1) Magnesium Level 2.3 mg/dl (1.8-2.4) Triglycerides Level 129 mg/dl (0-150) Cholesterol Level 173 mg/dl (0-200) HDL Cholesterol 40 mg/dl LDL Cholesterol, Calculated 107 mg/dl VLDL Cholesterol, Calculated 26 mg/dl Cholesterol/HDL Ratio 4.3 Imaging carotid doppler- Moderate mixed plaquing of the left carotid bulb results in elevated peak systolic velocity of the proximal left internal carotid artery correlating with 50-69% stenosis. Normal antegrade vertebral flow bilaterally. MRA head- No high-grade stenosis, aneurysm, proximal branch occlusion or dissection. 2. Approximately 50% luminal narrowing involves the V4 segment left vertebral artery, likely secondary to underlying atherosclerotic plaquing. MRI brain without contrast- 4 mm focus of increased T2 and diffusion-weighted signal within the left parietal lobe demonstrates intermediate signal on the ADC series suspicious for tiny subacute lacunar infarction. No large acute or subacute infarction identified. Moderate chronic microvascular ischemic changes. 6 mm focus of increased T2/FLAIR signal within the mid right cerebellar hemisphere may reflect gliosis from remote lacunar infarction however demonstrates a somewhat atypical appearance. Confirmation with a follow-up brain MRI with contrast could be considered. 10 mm ovoid cystic lesion of the left nasopharynx. CT head- No acute intracranial abnormality. 2. Progression of ill-defined subcortical and periventricular areas of ill-defined low-attenuation from comparison study dated 01/15/2014 suggest underlying chronic microvascular ischemic changes. Impression 57 year old male s/p right side weakness with headache preceding Plan 1. MRI without contrast needs with contrast for definition of findings 2. optimize HTN, DL, DM LDL <70 3. TTE pending read 4. carotid doppler with stenosis- will need repeated in 1 year and if increased with need vascular consult 5. PT/OT speech no current needs 6. need close follow up with PCP for medical management 7. aspirin 81 mg start plavix 75 mg x 3 months then stop plavix and continue aspirin for a life time. 8. smoking cessation needed. 9. further recommendations to follow I have seen and discussed above patient with Dr Kenyon Lay, neurology Patient seen and images reviewed currently asymptomatic with no findings on exam and with somewhat conflicting mri reports The earlies suggests a small deep acute event in left parietal lobe deep that could have caused the right leg weakness and on that imaging study I thought there was a second small event in the contralaterl hemisphere in addition to the lesion described in the right cerebellum the new imaging report show on the cerebellar lesion and it is likely benign and the possible more acute events have cleared or are not evident on diffusion and thus may well be old nonetheless he was quite hypertensive and does have small vessel disease so the above recommendations to rx him are valid on the basis of an assumed tia/rind and we will need to review [facility] for potential source of emboli in light of the initial bihemispheral dwi image abnormalities I have reviewd and discussed this with Linda Cast and will revisit him tomorrow Kenyon Lay MD
[2017-11-23] MEDS: CLONIDINE HCL 0.1 MG TAB PO PRN ×2 (14:15→19:49)
--- NOTE | 2017-11-23 15:52 | DIAGNOSTIC IMAGING REPORT ---
BRAIN COMBO HISTORY: 57 years-old Male define findings on MRI brain without contrast follow-up study to assess focal abnormal amount the of the mid right cerebellar hemisphere seen on noncontrast brain MRI 11/22/2017 COMPARISON: Brain MRI 11/22/2017 TECHNIQUE: Multiplanar multisequence MRI of the brain was obtained following the intravenous administration of 6.5 mL Gadavist FINDINGS: Large [id number] program director scouting localizer images demonstrate no gross abnormality. Midline structures including the corpus callosum, brainstem, optic chiasm, pituitary and pineal glands are unremarkable on the sagittal T1 series. There is no cerebellar tonsillar herniation. Degenerative changes are noted within the imaged cervical spine. 10 mm cystic lesion of the left nasopharynx redemonstrated No acute intracranial hemorrhage, midline shift or abnormal extra-axial collections. Mild brain atrophy. Moderate multifocal areas of T2/FLAIR prolongation noted within the periventricular, deep and subcortical white matter of the cerebral hemispheres bilaterally. T2 hyperintense ovoid focus with peripheral mildly increased FLAIR and decreased T1 signal involves the mid right cerebellar hemisphere measuring 6 x 6 x 6 mm nicely seen on image 18 of series 5 demonstrates no appreciable enhancement. This lesion appears somewhat cystic on the T2 images from yesterday's study. No intra-axial or extra-axial enhancement identified. IMPRESSION: 1. No enhancement identified involving the 6 mm lesion of the mid right cerebellar hemisphere. This suggests benign etiology, however a follow-up 3 month contrast-enhanced brain MRI recommended to further characterize. 2. Moderate chronic microvascular ischemic changes. 3. 10 mm cystic lesion of the left nasopharynx redemonstrated. The above report was generated using voice recognition software. It may contain grammatical, syntax or spelling errors. Electronically signed by: Odilon Zarate M.D. 11/23/2017 3:51 PM Dictated Date/Time: 11/23/2017 3:44 PM
--- NOTE | 2017-11-23 16:45 | Progress Note ---
Internal Med Progress Note Date of Service: Nov 23, 2017. Provider Documentation: SUBJECTIVE: The patient was seen and examined Denies any neuro symptoms No more dyslexia and or weakness Noted to have very high BP OBJECTIVE: Vital Signs-as noted below Exam: General-No distress Eyes-normal ENT-Normal Neck-supple Lungs-clear to ausucltate bilaterally Heart-regular,no murmur Abdomen-Benign Extremities-No edema Neuro-AAOx3 No focal neuro deficit Lab data as noted below. MRI: 4 mm focus of increased T2 and diffusion-weighted signal within the left parietal lobe demonstrates intermediate signal on the ADC series suspicious for tiny subacute lacunar infarction. No large acute or subacute infarction identified. 2. Moderate chronic microvascular ischemic changes. 3. 6 mm focus of increased T2/FLAIR signal within the mid right cerebellar hemisphere may reflect gliosis from remote lacunar infarction however demonstrates a somewhat atypical appearance. Confirmation with a follow-up brain MRI with contrast could be considered. 4. 10 mm ovoid cystic lesion of the left nasopharynx Repeat MRI::.1. No enhancement identified involving the 6 mm lesion of the mid right cerebellar hemisphere. This suggests benign etiology, however a follow-up 3 month contrast-enhanced brain MRI recommended to further characterize. 2. Moderate chronic microvascular ischemic changes. 3. 10 mm cystic lesion of the left nasopharynx redemonstrated. MRA:1. No high-grade stenosis, aneurysm, proximal branch occlusion or dissection. 2. Approximately 50% luminal narrowing involves the V4 segment left vertebral artery, likely secondary to underlying atherosclerotic plaquing. Carotid US::1. Moderate mixed plaquing of the left carotid bulb results in elevated peak systolic velocity of the proximal left internal carotid artery correlating with 50-69% stenosis. 2. Normal antegrade vertebral flow bilaterally. ASSESSMENT & PLAN: RIGHT SIDED WEAKNESS/HYPERTENSIVE EMERGENCY Pt with hx untreated HTN, smoker who woke up at 4am today with R arm and R leg weakness with waxing and waning symptoms throughout the day. Denies KAPLAN, CP. In ER hypertensive at 258/134. Pt given labetalol 20mg IV, hydralazine 10mg IV and hydralazine 20mg IV. BP down to 195/112. Tele to monitor for any arrhythmias Neuro checks Q4H Lopressor 50mg po BID to control BP and PRN medication as well Started on ASA, Plavix, statin Neurology consult CT,MRI,MRA ,Carotid US-no definite stroke except mild Lacunae ECHO;pending -PT/OT consult HTN Stated on Lopressor may need to add more meds Tobacco Use Disorder 2 PPD for many years Does not want to quit but will reduce the numbers DVT Prophylaxis -Lovenox Full Code DISPOSITION Awaited Vital Signs: Date Time Temp Pulse Resp B/P (MAP) Pulse Ox O2 Delivery O2 Flow Rate FiO2 11/23/17 15:47 36.2 75 20 167/89 (115) 97 Room Air 11/23/17 14:10 36.7 77 18 171/82 (111) 96 11/23/17 12:00 Room Air 11/23/17 11:39 173/91 (118) 11/23/17 11:09 36.6 65 18 194/103 (133) 97 206/110 (142) 11/23/17 08:00 Room Air 11/23/17 07:03 36.8 71 18 176/91 (119) 98 11/23/17 04:00 Room Air 11/23/17 03:50 36.8 85 19 160/83 (108) 95 Room Air 11/23/17 00:02 Room Air 11/22/17 23:38 37.1 88 20 169/77 (107) 95 Room Air 11/22/17 20:00 Room Air 11/22/17 19:07 36.7 81 20 171/89 96 Room Air 11/22/17 18:48 36.7 81 20 171/89 (116) 96 Room Air 11/22/17 17:33 85 18 195/112 97 Room Air 11/22/17 17:03 89 11/22/17 16:50 211/136 11/22/17 16:44 76 18 231/131 98 Room Air Lab Results: Results Past 24 Hours Test 11/23/17 05:21 Range/Units White Blood Count 8.94 4.8-10.8 K/uL Red Blood Count 4.95 4.7-6.1 M/uL Hemoglobin 14.7 14.0-18.0 g/dL Hematocrit 43.0 42-52 % Mean Corpuscular Volume 86.9 80-100 fL Mean Corpuscular Hemoglobin 29.7 25-34 pg Mean Corpuscular Hemoglobin Concent 34.2 32-36 g/dl Platelet Count 289 130-400 K/uL Mean Platelet Volume 9.5 7.4-10.4 fL Neutrophils (%) (Auto) 64.1 % Lymphocytes (%) (Auto) 27.5 % Monocytes (%) (Auto) 6.2 % Eosinophils (%) (Auto) 1.9 % Basophils (%) (Auto) 0.2 % Neutrophils # (Auto) 5.73 1.4-6.5 K/uL Lymphocytes # (Auto) 2.46 1.2-3.4 K/uL Monocytes # (Auto) 0.55 0.11-0.59 K/uL Eosinophils # (Auto) 0.17 0-0.5 K/uL Basophils # (Auto) 0.02 0-0.2 K/uL RDW Standard Deviation 44.7 36.4-46.3 fL RDW Coefficient of Variation 14.2 11.5-14.5 % Immature Granulocyte % (Auto) 0.1 % Immature Granulocyte # (Auto) 0.01 0.00-0.02 K/uL Sodium Level 138 136-145 mmol/L Potassium Level 4.0 3.5-5.1 mmol/L Chloride Level 108 98-107 mmol/L Carbon Dioxide Level 24 21-32 mmol/L Anion Gap 6.0 3-11 mmol/L Blood Urea Nitrogen 15 7-18 mg/dl Creatinine 1.45 0.60-1.40 mg/dl Est Creatinine Clear Calc Drug Dose 47.1 ml/min Estimated GFR () 61.5 Estimated GFR (Non- 53.1 BUN/Creatinine Ratio 10.0 10-20 Random Glucose 99 70-99 mg/dl Estimated Average Glucose 128 mg/dl Hemoglobin A1c 6.1 4.5-5.6 % Calcium Level 8.9 8.5-10.1 mg/dl Magnesium Level 2.3 1.8-2.4 mg/dl Triglycerides Level 129 0-150 mg/dl Cholesterol Level 173 0-200 mg/dl HDL Cholesterol 40 mg/dl LDL Cholesterol, Calculated 107 mg/dl VLDL Cholesterol, Calculated 26 mg/dl Cholesterol/HDL Ratio 4.3
--- NOTE | 2017-11-23 17:50 | ECHOCARDIOGRAM REPORT ---
*NOTICE TO RECEIVING CONSTITUTION PARTY AGENCY This information is strictly Confidential and protected under [place] law. [place] law prohibits you from making any further disclosure of this information unless further disclosure is expressly permitted by the written consent of the person to whom it pertains or is authorized by law. A general authorization for the release of medical or other information is not sufficient for this purpose. Hospital accepts no responsibility if the information is made available to any other person, INCLUDING THE PATIENT. Interpretation Summary * Name: GUIDO GUERRERO Study Date: 11/23/2017 07:10 AM BP: 160/83 mmHg * Patient Location: [facility] HR: 85 * : 1960 (M/d/yyyy) Gender: Male Height: 64 in * Age: 57 yrs Ethnicity: [place] Weight: 155 lb * Ordering Physician: Aurelia Loving * Referring Physician: Self, Referred * Performed By: Anjali Taylor RDCS * * Reason For Study: Cerebral Ischemia/Embolus * BSA: 1.8 m2 * -- Conclusions -- * There is severe concentric left ventricular hypertrophy. * Ejection Fraction = 60-65%. * Grade I diastolic dysfunction, (abnormal relaxation pattern). * No significant valvular pathology. Procedure Details * A complete two-dimensional transthoracic echocardiogram was performed (2D, M-mode, Doppler and color flow Doppler). * Patient refused microcavitation study. Left Ventricle * The left ventricle is normal in size. * There is severe concentric left ventricular hypertrophy. * Ejection Fraction = 60-65%. * Left ventricular systolic function is normal. Right Ventricle * The right ventricle is normal size. * The right ventricular systolic function is normal. Atria * The left atrial size is normal. * Right atrial size is normal. * No ASD detected; PFO is not assessed. Mitral Valve * The mitral valve anatomy is normal. * Significant mitral regurgitation is absent. Tricuspid Valve * The tricuspid valve anatomy is normal. * Significant tricuspid regurgitation is absent. Aortic Valve * The aortic valve is normal in structure and function. Pulmonic Valve * The pulmonic valve is not well seen, but is grossly normal. * There is no significant pulmonary regurgitation. Great Vessels * The aortic root and proximal ascending aorta are normal sized. Pericardium/Pleural * There is no pericardial effusion. Left Ventricular Diastolic Function * Grade I diastolic dysfunction, (abnormal relaxation pattern). MMode 2D Measurements and Calculations IVSd 1.5 cm IVSs 1.7 cm LVIDd 3.4 cm LVIDs 2.1 cm LVPWd 1.7 cm LVPWs 1.9 cm IVS/LVPW 0.83 FS 36.7 % EDV(Teich) 46.8 ml ESV(Teich) 15.1 ml EF(Teich) 67.7 % EDV(cubed) 38.7 ml ESV(cubed) 9.8 ml EF(cubed) 74.7 % % IVS thick 14.0 % % LVPW thick 10.8 % LV mass(C)d 205.3 grams LV mass(C)dI 116.9 grams/m\S\2 LV mass(C)s 148.8 grams LV mass(C)sI 84.8 grams/m\S\2 SV(Teich) 31.7 ml SI(Teich) 18.1 ml/m\S\2 SV(cubed) 28.9 ml SI(cubed) 16.5 ml/m\S\2 Ao root diam 3.1 cm Ao root area 7.3 cm\S\2 ACS 2.0 cm LA dimension 3.9 cm LA/Ao 1.3 LVAd ap4 22.3 cm\S\2 LVLd ap4 7.5 cm EDV(MOD-sp4) 56.8 ml EDV(sp4-el) 56.3 ml LVAs ap4 12.7 cm\S\2 LVLs ap4 6.5 cm ESV(MOD-sp4) 23.3 ml ESV(sp4-el) 21.1 ml EF(MOD-sp4) 59.0 % EF(sp4-el) 62.6 % LVAd ap2 24.9 cm\S\2 LVLd ap2 8.9 cm EDV(MOD-sp2) 62.9 ml EDV(sp2-el) 59.1 ml LVAs ap2 13.0 cm\S\2 LVLs ap2 7.1 cm ESV(MOD-sp2) 22.6 ml ESV(sp2-el) 20.3 ml EF(MOD-sp2) 64.0 % EF(sp2-el) 65.6 % LVLd %diff 16.2 % EDV(MOD-bp) 65.1 ml LVLs %diff 8.1 % ESV(MOD-bp) 22.9 ml EF(MOD-bp) 64.8 % SV(MOD-sp4) 33.5 ml SI(MOD-sp4) 19.1 ml/m\S\2 SV(MOD-sp2) 40.3 ml SI(MOD-sp2) 22.9 ml/m\S\2 SV(MOD-bp) 42.2 ml SI(MOD-bp) 24.0 ml/m\S\2 SV(sp4-el) 35.3 ml SI(sp4-el) 20.1 ml/m\S\2 SV(sp2-el) 38.8 ml SI(sp2-el) 22.1 ml/m\S\2 Doppler Measurements and Calculations MV E max jaqueline 74.4 cm/sec MV A max jaqueline 97.1 cm/sec MV E/A 0.77 MV dec time 0.24 sec Ao V2 max 119.0 cm/sec Ao max PG 5.7 mmHg Ao max PG (full) 1.5 mmHg LV V1 max PG 4.2 mmHg LV V1 max 102.5 cm/sec PA V2 max 93.1 cm/sec PA max PG 3.5 mmHg TR max jaqueline 220.0 cm/sec
[2017-11-23] MEDS: ENOXAPARIN 40 MG/0.4 ML SYR SC SCH (20:49)
[2017-11-24] VITALS (7 sets, daily range): BP systolic 134–197; BP diastolic 86–107; PULSE 59–78; TEMP 36.5–36.9; O2SAT 95–98
[2017-11-24 03:25] LABS: BASO % 0.1 %; BASO ABS # 0.01 K/uL (0-0.2); EOS % 2.5 %; EOS ABS # 0.21 K/uL (0-0.5); HEMATOCRIT 41.2 % (42-52); HEMOGLOBIN 13.9 g/dL (14.0-18.0); IG# 0.01 K/uL (0.00-0.02); LYMPH % 46.4 %; LYMPH ABS # 3.83 K/uL (1.2-3.4); MEAN CELL VOLUME 86.7 fL (80-100); MEAN CORPUSCULAR HEMOGLOBIN 29.3 pg (25-34); MEAN CORPUSCULAR HGB CONC 33.7 g/dl (32-36); MEAN PLATELET VOLUME 9.4 fL (7.4-10.4); MONO % 7.4 %; MONO ABS # 0.61 K/uL (0.11-0.59); NEUT % 43.5 %; NEUT ABS # 3.58 K/uL (1.4-6.5); PLATELET COUNT 268 K/uL (130-400); RED CELL DISTRIBUTION WIDTH CV 14.1 % (11.5-14.5); RED CELL DISTRIBUTION WIDTH SD 44.7 fL (36.4-46.3); WHITE BLOOD COUNT 8.25 K/uL (4.8-10.8)
[2017-11-24 03:29] LABS: CALCIUM 8.7 mg/dl (8.5-10.1); CREATININE 1.43 mg/dl (0.60-1.40); POTASSIUM 3.7 mmol/L (3.5-5.1)
[2017-11-24] MEDS: NICOTINE 21 MG/24 HR TDSY EXT SCH (07:39)
[2017-11-24] MEDS: CLOPIDOGREL BISULFATE 75 MG TAB PO SCH (07:41)
[2017-11-24] MEDS: METOPROLOL TARTRATE 50 MG TAB PO SCH ×2 (07:41→19:32)
[2017-11-24] MEDS: ASPIRIN 81 MG ECTAB PO SCH (07:41)
[2017-11-24] MEDS: ATORVASTATIN 40 MG TAB PO SCH (07:41)
--- NOTE | 2017-11-24 10:55 | Progress Note ---
Internal Med Progress Note Date of Service: Nov 24, 2017. Provider Documentation: SUBJECTIVE: The patient was seen and examined Denies any neuro symptoms No more dyslexia and or weakness Noted to have very high BP Denies any new symptoms and other symptoms are resolved Wants to go home OBJECTIVE: Vital Signs-as noted below Exam: General-No distress at rest Eyes-normal ENT-Normal Neck-supple Lungs-clear to ausucltate bilaterally Heart-regular,no murmur Abdomen-Benign Extremities-No edema Neuro-AAOx3 No focal neuro deficit Lab data as noted below. MRI: 4 mm focus of increased T2 and diffusion-weighted signal within the left parietal lobe demonstrates intermediate signal on the ADC series suspicious for tiny subacute lacunar infarction. No large acute or subacute infarction identified. 2. Moderate chronic microvascular ischemic changes. 3. 6 mm focus of increased T2/FLAIR signal within the mid right cerebellar hemisphere may reflect gliosis from remote lacunar infarction however demonstrates a somewhat atypical appearance. Confirmation with a follow-up brain MRI with contrast could be considered. 4. 10 mm ovoid cystic lesion of the left nasopharynx Repeat MRI::.1. No enhancement identified involving the 6 mm lesion of the mid right cerebellar hemisphere. This suggests benign etiology, however a follow-up 3 month contrast-enhanced brain MRI recommended to further characterize. 2. Moderate chronic microvascular ischemic changes. 3. 10 mm cystic lesion of the left nasopharynx redemonstrated. MRA:1. No high-grade stenosis, aneurysm, proximal branch occlusion or dissection. 2. Approximately 50% luminal narrowing involves the V4 segment left vertebral artery, likely secondary to underlying atherosclerotic plaquing. Carotid US::1. Moderate mixed plaquing of the left carotid bulb results in elevated peak systolic velocity of the proximal left internal carotid artery correlating with 50-69% stenosis. 2. Normal antegrade vertebral flow bilaterally. ECHO::There is severe concentric left ventricular hypertrophy. * Ejection Fraction = 60-65%. * Grade I diastolic dysfunction, (abnormal relaxation pattern). * No significant valvular pathology. ASSESSMENT & PLAN: RIGHT SIDED WEAKNESS/HYPERTENSIVE EMERGENCY -Resolved Pt with hx untreated HTN, smoker who woke up at 4am today with R arm and R leg weakness with waxing and waning symptoms throughout the day. Denies KAPLAN, CP. In ER hypertensive at 258/134. Pt given labetalol 20mg IV, hydralazine 10mg IV and hydralazine 20mg IV. BP down to 195/112. Tele to monitor for any arrhythmias Neuro checks Q4H-no neurological deficit noted Lopressor 50mg po BID to control BP and PRN medication as well Started on ASA, Plavix, statin Neurology consult CT,MRI,MRA ,Carotid US-no definite stroke except mild Lacunae ECHO;There is severe concentric left ventricular hypertrophy. * Ejection Fraction = 60-65%. * Grade I diastolic dysfunction, (abnormal relaxation pattern). * No significant valvular pathology. -PT/OT consult -ambulating well HTN Stated on Lopressor may need to add more meds BP is reasonably controlled Tobacco Use Disorder 2 PPD for many years Does not want to quit but will reduce the numbers DVT Prophylaxis -Lovenox Full Code DISPOSITION Likely discharged today Vital Signs: Date Time Temp Pulse Resp B/P (MAP) Pulse Ox O2 Delivery O2 Flow Rate FiO2 11/24/17 08:00 Room Air 11/24/17 07:49 36.7 64 18 166/89 (114) 95 11/24/17 04:02 Room Air 11/24/17 03:27 36.6 63 17 165/89 (114) 95 Room Air 11/24/17 00:02 Room Air 11/23/17 23:18 36.9 68 19 139/78 (98) 97 Room Air 11/23/17 20:36 158/81 (106) 11/23/17 20:00 Room Air 11/23/17 19:32 36.6 67 15 174/87 (116) 96 Room Air 11/23/17 16:00 Room Air 11/23/17 15:47 36.2 75 20 167/89 (115) 97 Room Air 11/23/17 14:10 36.7 77 18 171/82 (111) 96 11/23/17 12:00 Room Air 11/23/17 11:39 173/91 (118) 11/23/17 11:09 36.6 65 18 194/103 (133) 97 206/110 (142) Lab Results: Results Past 24 Hours Test 11/23/17 21:13 11/24/17 03:01 Range/Units Troponin I 0.192 0.167 0-0.045 ng/ml White Blood Count 8.25 4.8-10.8 K/uL Red Blood Count 4.75 4.7-6.1 M/uL Hemoglobin 13.9 14.0-18.0 g/dL Hematocrit 41.2 42-52 % Mean Corpuscular Volume 86.7 80-100 fL Mean Corpuscular Hemoglobin 29.3 25-34 pg Mean Corpuscular Hemoglobin Concent 33.7 32-36 g/dl Platelet Count 268 130-400 K/uL Mean Platelet Volume 9.4 7.4-10.4 fL Neutrophils (%) (Auto) 43.5 % Lymphocytes (%) (Auto) 46.4 % Monocytes (%) (Auto) 7.4 % Eosinophils (%) (Auto) 2.5 % Basophils (%) (Auto) 0.1 % Neutrophils # (Auto) 3.58 1.4-6.5 K/uL Lymphocytes # (Auto) 3.83 1.2-3.4 K/uL Monocytes # (Auto) 0.61 0.11-0.59 K/uL Eosinophils # (Auto) 0.21 0-0.5 K/uL Basophils # (Auto) 0.01 0-0.2 K/uL RDW Standard Deviation 44.7 36.4-46.3 fL RDW Coefficient of Variation 14.1 11.5-14.5 % Immature Granulocyte % (Auto) 0.1 % Immature Granulocyte # (Auto) 0.01 0.00-0.02 K/uL Sodium Level 137 136-145 mmol/L Potassium Level 3.7 3.5-5.1 mmol/L Chloride Level 107 98-107 mmol/L Carbon Dioxide Level 23 21-32 mmol/L Anion Gap 7.0 3-11 mmol/L Blood Urea Nitrogen 16 7-18 mg/dl Creatinine 1.43 0.60-1.40 mg/dl Est Creatinine Clear Calc Drug Dose 47.8 ml/min Estimated GFR () 62.6 Estimated GFR (Non- 54.0 BUN/Creatinine Ratio 11.3 10-20 Random Glucose 96 70-99 mg/dl Calcium Level 8.7 8.5-10.1 mg/dl Phosphorus Level 3.0 2.5-4.9 mg/dl Magnesium Level 2.3 1.8-2.4 mg/dl
--- NOTE | 2017-11-24 11:45 | PROGRESS NOTE ---
DATE: 11/24/2017 SUBJECTIVE: Bryce remains asymptomatic. His right leg clumsiness probably only lasted 6 hours before cleared up completely and he has had no other deficits. He is anxious to go. His blood pressure is apparently now in a reasonable range. He is on dual antiplatelet therapy. He is on the algorithmic atorvastatin and I think some lisinopril and theoretically he is going to follow up with the primary care physician. Echocardiogram shows no potential source of emboli and in retrospect, the MRI scans probably were not consistent with acute events, but rather T2 shine through seen on diffusion-weighted imaging. I have re reviewed the images looked at the reports and agree that these are probably nonacute events. There is an issue in the right paramedian cerebellum and I think is probably a vascular event or an old cyst. This needs followed up with another MRI in 3-6 months, so at the time of discharge -which according to the patient is going to be today- I would arrange for him to be seen in our neurology office by Linda Cast and myself in about 6 weeks. Whether or not he is compliant with that is another issue as his compliance with medical care to date has been less than sujey WREN
[2017-11-24] MEDS ORDERED: AMLODIPINE BESYLATE 5 MG TAB PO ONE (12:15)
[2017-11-24] MEDS ORDERED: ASPEC81 PO (15:26)
[2017-11-24] MEDS ORDERED: NICO21DI4 EXT (15:26)
[2017-11-24] MEDS ORDERED: METO50TA16 PO (15:26)
[2017-11-24] MEDS ORDERED: NRV5 PO (15:26)
[2017-11-24] MEDS ORDERED: PLV75 PO (15:26)
[2017-11-24] MEDS ORDERED: LPT40 PO (15:26)
--- NOTE | 2017-11-24 15:28 | Discharge Instructions ---
Discharge Instructions Date of Service Nov 24, 2017. Admission Reason for Admission: Htn, Right Sided Weakness Discharge Discharge Diagnosis / Problem: Possible Stroke-no residual effect,Hypertensive Urgency Discharge Goals Goal(s): Prevent Disease Progression Activity Recommendations Activity Limitations: resume your previous activity . Instructions / Follow-Up Instructions / Follow-Up Dr Santana on 11/29/17 at 10:[address] Mack (neurology ) on 01/07/18 at 9: 05 AM Current Hospital Diet Patient's current hospital diet: AHA Diet (Heart Healthy) Discharge Diet Recommended Diet: AHA Diet (Heart Healthy), Low Sodium Diet (2gm Na) Pending Studies Studies pending at discharge: no Laboratory Results Hemoglobin A1c Test 11/23/17 05:21 Range/Units Estimated Average Glucose 128 mg/dl Hemoglobin A1c 6.1 H 4.5-5.6 % Lipid Panel Test 11/23/17 05:21 Range/Units Triglycerides Level 129 0-150 mg/dl Cholesterol Level 173 0-200 mg/dl HDL Cholesterol 40 mg/dl Cholesterol/HDL Ratio 4.3 LDL Cholesterol, Calculated 107 mg/dl Medical Emergencies . Who to Call and When: Medical Emergencies: If at any time you feel your situation is an emergency, please call 911 immediately. . Non-Emergent Contact Non-Emergency issues call your: Primary Care Provider . Past History Medical & Surgical History: (1) HTN (hypertension) (2) Right sided weakness (3) Hypertensive urgency . "Provider Documentation" section prepared by Matt Medina. .
[2017-11-24] MEDS ORDERED: LISINOPRIL 5 MG TAB PO ONE (16:00)
[2017-11-24] MEDS: CLONIDINE HCL 0.1 MG TAB PO PRN (16:00)
[2017-11-24] MEDS: ENOXAPARIN 40 MG/0.4 ML SYR SC SCH (19:35)
[2017-11-25 03:37] VITALS: BP 153/72; PULSE 62; TEMP 36.7; O2SAT 95
[2017-11-25 06:54] LABS: BASO % 0.2 %; BASO ABS # 0.02 K/uL (0-0.2); EOS % 2.6 %; EOS ABS # 0.22 K/uL (0-0.5); HEMATOCRIT 42.1 % (42-52); HEMOGLOBIN 14.2 g/dL (14.0-18.0); IG# 0.01 K/uL (0.00-0.02); LYMPH % 40.4 %; LYMPH ABS # 3.39 K/uL (1.2-3.4); MEAN CELL VOLUME 87.3 fL (80-100); MEAN CORPUSCULAR HEMOGLOBIN 29.5 pg (25-34); MEAN CORPUSCULAR HGB CONC 33.7 g/dl (32-36); MEAN PLATELET VOLUME 9.9 fL (7.4-10.4); MONO % 9.9 %; MONO ABS # 0.83 K/uL (0.11-0.59); NEUT % 46.8 %; NEUT ABS # 3.93 K/uL (1.4-6.5); PLATELET COUNT 271 K/uL (130-400); RED CELL DISTRIBUTION WIDTH SD 45.1 fL (36.4-46.3)
[2017-11-25 07:28] LABS: CALCIUM 8.7 mg/dl (8.5-10.1); CREATININE 1.4 mg/dl (0.60-1.40); POTASSIUM 4.4 mmol/L (3.5-5.1)
[2017-11-25] MEDS ORDERED: LSN5 PO (07:29)
[2017-11-25 07:41] VITALS: BP 160/97; PULSE 61; TEMP 36.6; O2SAT 96
[2017-11-25] MEDS: NICOTINE 21 MG/24 HR TDSY EXT SCH (08:18)
[2017-11-25] MEDS: CLOPIDOGREL BISULFATE 75 MG TAB PO SCH (08:20)
[2017-11-25] MEDS: ATORVASTATIN 40 MG TAB PO SCH (08:20)
[2017-11-25] MEDS: ASPIRIN 81 MG ECTAB PO SCH (08:20)
[2017-11-25] MEDS: METOPROLOL TARTRATE 50 MG TAB PO SCH (08:20)
[2017-11-25] MEDS ORDERED: AMLODIPINE BESYLATE 5 MG TAB PO SCH (09:00)
[2017-11-25] MEDS ORDERED: LISINOPRIL 5 MG TAB PO SCH (09:00)
--- NOTE | 2017-11-25 09:34 | Progress Note ---
Internal Med Progress Note Date of Service: Nov 25, 2017. Provider Documentation: SUBJECTIVE: The patient was seen and examined Denies any neuro symptoms No more dyslexia and or weakness Noted to have very high BP Denies any new symptoms and other symptoms are resolved BP is controlled Will discharge home today OBJECTIVE: Vital Signs-as noted below Exam: General-No distress at rest Eyes-normal ENT-Normal Neck-supple Lungs-clear to ausucltate bilaterally Heart-regular,no murmur Abdomen-Benign Extremities-No edema Neuro-AAOx3 No focal neuro deficit Lab data as noted below. MRI: 4 mm focus of increased T2 and diffusion-weighted signal within the left parietal lobe demonstrates intermediate signal on the ADC series suspicious for tiny subacute lacunar infarction. No large acute or subacute infarction identified. 2. Moderate chronic microvascular ischemic changes. 3. 6 mm focus of increased T2/FLAIR signal within the mid right cerebellar hemisphere may reflect gliosis from remote lacunar infarction however demonstrates a somewhat atypical appearance. Confirmation with a follow-up brain MRI with contrast could be considered. 4. 10 mm ovoid cystic lesion of the left nasopharynx Repeat MRI::.1. No enhancement identified involving the 6 mm lesion of the mid right cerebellar hemisphere. This suggests benign etiology, however a follow-up 3 month contrast-enhanced brain MRI recommended to further characterize. 2. Moderate chronic microvascular ischemic changes. 3. 10 mm cystic lesion of the left nasopharynx redemonstrated. MRA:1. No high-grade stenosis, aneurysm, proximal branch occlusion or dissection. 2. Approximately 50% luminal narrowing involves the V4 segment left vertebral artery, likely secondary to underlying atherosclerotic plaquing. Carotid US::1. Moderate mixed plaquing of the left carotid bulb results in elevated peak systolic velocity of the proximal left internal carotid artery correlating with 50-69% stenosis. 2. Normal antegrade vertebral flow bilaterally. ECHO::There is severe concentric left ventricular hypertrophy. * Ejection Fraction = 60-65%. * Grade I diastolic dysfunction, (abnormal relaxation pattern). * No significant valvular pathology. ASSESSMENT & PLAN: RIGHT SIDED WEAKNESS/HYPERTENSIVE EMERGENCY -Resolved Pt with hx untreated HTN, smoker who woke up at 4am today with R arm and R leg weakness with waxing and waning symptoms throughout the day. Denies KAPLAN, CP. In ER hypertensive at 258/134. Pt given labetalol 20mg IV, hydralazine 10mg IV and hydralazine 20mg IV. BP down to 195/112. Tele to monitor for any arrhythmias Neuro checks Q4H-no neurological deficit noted Lopressor 50mg po BID to control BP and PRN medication as well Started on ASA, Plavix, statin Neurology consult CT,MRI,MRA ,Carotid US-no definite stroke except mild Lacunae ECHO;There is severe concentric left ventricular hypertrophy. * Ejection Fraction = 60-65%. * Grade I diastolic dysfunction, (abnormal relaxation pattern). * No significant valvular pathology. -PT/OT consult -ambulating well -clinically stable to go home HTN Stated on Lopressor may need to add more meds BP is reasonably controlled Lisinopril added Tobacco Use Disorder 2 PPD for many years Does not want to quit but will reduce the numbers DVT Prophylaxis -Lovenox Full Code DISPOSITION Likely discharged today Vital Signs: Date Time Temp Pulse Resp B/P (MAP) Pulse Ox O2 Delivery O2 Flow Rate FiO2 11/25/17 08:00 Room Air 11/25/17 07:41 36.6 61 20 160/97 (118) 96 11/25/17 04:00 Room Air 11/25/17 03:37 36.7 62 17 153/72 (99) 95 Room Air 11/25/17 00:00 Room Air 11/24/17 23:33 36.9 59 15 134/86 (102) 98 Room Air 11/24/17 20:01 Room Air 11/24/17 18:52 36.5 20 179/98 (125) 97 Room Air 11/24/17 16:00 Room Air 11/24/17 15:26 36.8 59 20 197/107 (137) 97 Room Air 11/24/17 14:07 66 167/96 (119) 11/24/17 12:00 Room Air 11/24/17 12:00 36.6 65 18 168/102 (124) 96 Room Air Lab Results: Results Past 24 Hours Test 11/25/17 06:04 Range/Units White Blood Count 8.40 4.8-10.8 K/uL Red Blood Count 4.82 4.7-6.1 M/uL Hemoglobin 14.2 14.0-18.0 g/dL Hematocrit 42.1 42-52 % Mean Corpuscular Volume 87.3 80-100 fL Mean Corpuscular Hemoglobin 29.5 25-34 pg Mean Corpuscular Hemoglobin Concent 33.7 32-36 g/dl Platelet Count 271 130-400 K/uL Mean Platelet Volume 9.9 7.4-10.4 fL Neutrophils (%) (Auto) 46.8 % Lymphocytes (%) (Auto) 40.4 % Monocytes (%) (Auto) 9.9 % Eosinophils (%) (Auto) 2.6 % Basophils (%) (Auto) 0.2 % Neutrophils # (Auto) 3.93 1.4-6.5 K/uL Lymphocytes # (Auto) 3.39 1.2-3.4 K/uL Monocytes # (Auto) 0.83 0.11-0.59 K/uL Eosinophils # (Auto) 0.22 0-0.5 K/uL Basophils # (Auto) 0.02 0-0.2 K/uL RDW Standard Deviation 45.1 36.4-46.3 fL RDW Coefficient of Variation 14.0 11.5-14.5 % Immature Granulocyte % (Auto) 0.1 % Immature Granulocyte # (Auto) 0.01 0.00-0.02 K/uL Sodium Level 137 136-145 mmol/L Potassium Level 4.4 3.5-5.1 mmol/L Chloride Level 107 98-107 mmol/L Carbon Dioxide Level 23 21-32 mmol/L Anion Gap 7.0 3-11 mmol/L Blood Urea Nitrogen 23 7-18 mg/dl Creatinine 1.40 0.60-1.40 mg/dl Est Creatinine Clear Calc Drug Dose 48.8 ml/min Estimated GFR () 64.2 Estimated GFR (Non- 55.4 BUN/Creatinine Ratio 16.4 10-20 Random Glucose 82 70-99 mg/dl Calcium Level 8.7 8.5-10.1 mg/dl
[2017-11-25 11:36] VITALS: BP 176/99; PULSE 59; TEMP 36.6; O2SAT 97
--- NOTE | 2017-11-25 11:37 | PROGRESS NOTE ---
DATE: 11/25/2017 SUBJECTIVE: Bryce was not discharged yesterday His hypertension really surged but today things seem to be backed into a more normal range with systolics running around 150-160 maximum, and generally h less. He is going to be on his antihypertensive regimen, atorvastatin, Plavix and aspirin and we can take a look at him in about 6-8 weeks. He needs to get in with a primary care physician within the [facility] system and he is going to look into this as soon as he is discharged. 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 He probably had a TIA. The right leg was clumsy and weak for about 4-5 hours, but he had a significant degree of hypertension as well. Overall, then we are going to diagnose him as a transient ischemic attack with a hypertensive urgency and will follow up on the cerebellar lesion, probably with another MRI in about 3 months. HOLGER
[2017-11-25 13:30] VITALS: BP 176/99; PULSE 59; TEMP 36.6; O2SAT 97
--- NOTE | 2017-11-26 07:30 | Discharge Summary ---
Discharge Summary Date of Service Nov 26, 2017. Discharge Summary Admission Date: Nov 22, 2017 at 17:15 Discharge Date: Nov 24, 2017 Discharge Disposition: Home Principal Diagnosis: Likely TIA,Possible Stroke Ruled out-Corrected on 12/03/17.,Hypertensive Urgency Secondary Diagnoses/Problems: Please see H&P and Hospital progress note Consultations: Neurology Medication Reconciliation New Medications: Lisinopril (Lisinopril) 5 Mg Tab 5 MG PO DAILY, #30 Aspirin (Aspirin EC Low Dose) 81 Mg Ectab 81 MG PO QAM for 30 Days, #30 Atorvastatin (Lipitor) 40 Mg Tab 40 MG PO QAM for 30 Days, #30 TAB Clopidogrel Bisulfate (Clopidogrel) 75 Mg Tab 75 MG PO QAM for 30 Days, #30 TAB Continue for 3 months and then stop. Metoprolol Tartrate (Lopressor) (Lopressor) 50 Mg Tab 50 MG PO BID for 30 Days, #60 TAB Nicotine (Nicoderm Cq) 21 Mg/24 Hr Dis 1 PATCH EXT QAM for 30 Days, #30 Admission Information HPI (per Admitting provider): Pt is 57 y/o M with PMH HTN, smoker presented to ER with c/o R sided weakness. Patient reports went to bed at 8 PM last night. Woke up this morning at 4 AM as he got out of bed he noticed right leg weakness and was unable to walk. Patient states he was dragging his right leg. He also noticed right arm discomfort and right hand weakness. 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 Reports symptoms getting better and then worse again throughout the day. He dropped his coffee out of his right hand, but down to pick it up and then could not stand back up due to right leg weakness. [place] a little lightheaded this morning , denies syncope or KAPLAN. No prior treatment. Patient reports known history of hypertension however has not followed up with PCP for years and is not currently on any medications. States he gained insurance at the beginning of this year and is assigned to [facility] PCP in [place], however has not yet seen. Patient reports smoking 2 packs a day of cigarettes 40 years. Chewing tobacco once daily. Denies history of known coronary artery disease or stroke in the past. Denies fever/chills, diaphoresis, N/V/D/C, KAPLAN, vision changes, neck pain, CP, SOB, orthopnea, palpitations, cough, sore throat, choking, otalgia, rhinorrhea, abdominal pain, paresthesias, extremity edema, rashes, urinary symptoms. In the ER patient hypertensive to 258/134. Given labetalol 20 mg IV, hydralazine 10 mg IV, aspirin. BP down to 210/117. Another 20 mg of IV hydralazine was ordered. Past Medical/Surgical History Medical Problems: (1) Cervical stenosis of spinal canal Status: Chronic (2) Chest pain Status: Resolved (3) HTN (hypertension) Status: Chronic Surgical Problems: (1) Hx of cervical spine surgery Permanent Comment: C4-C7 anterior cervical discectomy & fusion Status: Resolved Family History Diabetes mellitus FH: CAD (coronary artery disease) Hypertension Social History Smoking Status: Current Every Day Smoker (2 ppd x 40 years) Smokeless Tobacco Use: chews tobacco once daily Alcohol Use: 1-2 beers a month Drug Use: none Housing status: lives alone Occupational Status: employed Allergies Coded Allergies: No Known Allergies (Unverified , 11/22/17) Home Medications No Active Prescriptions or Reported Meds Review of Systems Constitutional: No fever, No chills, No sweats, No weight loss Eyes: No worsening of vision, No eye pain, No redness, No discharge, No diplopia ENT: No hearing loss, No unusual epistaxis, No nasal symptoms, No sore throat, No tinnitus, No trouble swallowing Respiratory: No cough, No sputum, No wheezing, No shortness of breath, No dyspnea on exertion, No dyspnea at rest, No hemoptysis Cardiovascular: No chest pain, No orthopnea, No PND, No edema, No claudication , No palpitations Abdomen: No pain, No nausea, No vomiting, No diarrhea, No constipation, No GI bleeding Musculoskeletal: No joint pain, No muscle pain, No swelling, No calf pain Genitourinary - Male: No hematuria, No dysuria, No urinary frequency, No urinary urgency Neurologic: + problem reported (see HPI) Psychiatric: No depression symptoms, No anxiety, No substance abuse Endocrine: No excessive thirst, No excessive urination Hematologic / Lymphatic: No abnormal bleeding/bruising, No clotting problems, No swollen lymph nodes, No night sweats Integumentary: No rash, No itch Physical Exam H&P v2 Physical Exam Vital Signs Date Time Temp Pulse Resp B/P (MAP) Pulse Ox O2 Delivery O2 Flow Rate FiO2 11/22/17 17:33 85 18 195/112 97 Room Air 11/22/17 17:03 89 11/22/17 16:50 211/136 11/22/17 16:44 76 18 231/131 98 Room Air 11/22/17 15:48 72 20 231/135 95 Room Air 11/22/17 15:44 76 24 249/139 95 Room Air 11/22/17 15:43 Room Air 11/22/17 15:31 80 24 230/140 96 11/22/17 15:06 87 11/22/17 15:01 97 28 249/148 97 Room Air 11/22/17 14:53 36.6 100 20 258/134 97 Room Air General Appearance: WD/WN, no apparent distress Head: normocephalic, atraumatic Eyes: normal inspection, PERRL, EOMI, sclerae normal ENT: hearing grossly normal, pharynx normal, + pertinent finding (mucous membranes moist) Neck: supple, no JVD, trachea midline Respiratory/Chest: lungs clear, normal breath sounds, no respiratory distress Cardiovascular: regular rate, rhythm, no murmur Abdomen/GI: normal bowel sounds, non tender, soft Extremities/Musculoskelatal: normal capillary refill, no pedal edema, non- tender Neurologic/Psych: alert, normal mood/affect, oriented x 3, + pertinent finding (no facial drooping. clear speech, tongue midline, ROM bilateral arms and legs intact. 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 5/5 strength bilateral arms and extremities at this time. negative romberg. with walking pt with staggered gait and rightward drift.) Skin: normal color, warm/dry Diagnostics H&P v2 Diagnostics Laboratory Results Results Past 24 Hours Test 11/22/17 15:24 11/22/17 15:45 Range/Units White Blood Count 9.13 4.8-10.8 K/uL Red Blood Count 5.13 4.7-6.1 M/uL Hemoglobin 15.5 14.0-18.0 g/dL Hematocrit 44.9 42-52 % Mean Corpuscular Volume 87.5 80-100 fL Mean Corpuscular Hemoglobin 30.2 25-34 pg Mean Corpuscular Hemoglobin Concent 34.5 32-36 g/dl Platelet Count 301 130-400 K/uL Mean Platelet Volume 9.6 7.4-10.4 fL Neutrophils (%) (Auto) 54.2 % Lymphocytes (%) (Auto) 36.3 % Monocytes (%) (Auto) 6.5 % Eosinophils (%) (Auto) 2.6 % Basophils (%) (Auto) 0.2 % Neutrophils # (Auto) 4.95 1.4-6.5 K/uL Lymphocytes # (Auto) 3.31 1.2-3.4 K/uL Monocytes # (Auto) 0.59 0.11-0.59 K/uL Eosinophils # (Auto) 0.24 0-0.5 K/uL Basophils # (Auto) 0.02 0-0.2 K/uL RDW Standard Deviation 45.0 36.4-46.3 fL RDW Coefficient of Variation 14.0 11.5-14.5 % Immature Granulocyte % (Auto) 0.2 % Immature Granulocyte # (Auto) 0.02 0.00-0.02 K/uL Prothrombin Time 10.0 9.0-12.0 SECONDS Prothromb Time International Ratio 1.0 0.9-1.1 Activated Partial Thromboplast Time 25.0 21.0-31.0 SECONDS Partial Thromboplastin Ratio 1.0 Sodium Level 137 136-145 mmol/L Potassium Level 4.1 3.5-5.1 mmol/L Chloride Level 105 98-107 mmol/L Carbon Dioxide Level 26 21-32 mmol/L Anion Gap 6.0 3-11 mmol/L Blood Urea Nitrogen 13 7-18 mg/dl Creatinine 1.28 0.60-1.40 mg/dl Est Creatinine Clear Calc Drug Dose 53.3 ml/min Estimated GFR () 71.5 Estimated GFR (Non- 61.7 BUN/Creatinine Ratio 10.2 10-20 Random Glucose 89 70-99 mg/dl Calcium Level 9.2 8.5-10.1 mg/dl Magnesium Level 2.5 1.8-2.4 mg/dl Total Bilirubin 0.2 0.2-1 mg/dl Direct Bilirubin < 0.1 0-0.2 mg/dl Aspartate Amino Transf (AST/SGOT) 15 15-37 U/L Alanine Aminotransferase (ALT/SGPT) 22 12-78 U/L Alkaline Phosphatase 61 45-117 U/L Total Creatine Kinase 174 39-308 U/L Creatine Kinase MB 2.9 0.5-3.6 ng/ml Creatine Kinase MB Ratio 1.7 0-3.0 Troponin I < 0.015 0-0.045 ng/ml Total Protein 8.1 6.4-8.2 gm/dl Albumin 4.0 3.4-5.0 gm/dl Lipase 109 73-393 U/L Thyroid Stimulating Hormone (TSH) 2.630 0.300-4.500 uIu/ml Urine Color YELLOW Urine Appearance CLEAR CLEAR Urine pH 7.0 4.5-7.5 Urine Specific [place] 1.007 1.000-1.030 Urine Protein NEG NEG Urine Glucose (UA) NEG NEG Urine Ketones NEG NEG Urine Occult Blood NEG NEG Urine Nitrite NEG NEG Urine Bilirubin NEG NEG Urine Urobilinogen NEG NEG Urine Leukocyte Esterase NEG NEG Urine WBC (Auto) 0 0-5 /hpf Urine RBC (Auto) 0-4 0-4 /hpf Urine Hyaline Casts (Auto) 0 0-5 /lpf Urine Epithelial Cells (Auto) 0-5 0-5 /lpf Urine Bacteria (Auto) NEG NEG Diagnostic Radiology CXR: IMPRESSION: No active disease in the chest. CT HEAD: IMPRESSION: 1. No acute intracranial abnormality. 2. Progression of ill-defined subcortical and periventricular areas of ill-defined low-attenuation from comparison study dated 01/15/2014 suggest underlying chronic microvascular ischemic changes. MRI HEAD W/O CONTRAST: IMPRESSION: 1. 4 mm focus of increased T2 and diffusion-weighted signal within the left parietal lobe demonstrates intermediate signal on the ADC series suspicious for tiny subacute lacunar infarction. No large acute or subacute infarction identified. 2. Moderate chronic microvascular ischemic changes. 3. 6 mm focus of increased T2/FLAIR signal within the mid right cerebellar hemisphere may reflect gliosis from remote lacunar infarction however demonstrates a somewhat atypical appearance. Confirmation with a follow-up brain MRI with contrast could be considered. 4. 10 mm ovoid cystic lesion of the left nasopharynx. EKG EKG: rate 93, NSR Read by intelligence senior sergeant: Normal sinus rhythm Possible Left atrial enlargement Nonspecific ST and T wave abnormality Abnormal ECG When compared with ECG of 16-JAN-2014 05:00, Nonspecific T wave abnormality now evident in Lateral leads Confirmed by ERIN REA ([id number]) on 11/22/2017 4:44:45 PM Impression H&P v2 Impression Assessment and Plan RIGHT SIDED WEAKNESS/HYPERTENSIVE EMERGENCY Pt with hx untreated HTN, smoker who woke up at 4am today with R arm and R leg weakness with waxing and waning symptoms throughout the day. Denies KAPLAN, CP. In ER hypertensive at 258/134. Pt given labetalol 20mg IV, hydralazine 10mg IV and hydralazine 20mg IV. BP down to 195/112. MRI: 4 mm focus of increased T2 and diffusion-weighted signal within the left parietal lobe demonstrates intermediate signal on the ADC series suspicious for tiny subacute lacunar infarction. No large acute or subacute infarction identified. 2. Moderate chronic microvascular ischemic changes. 3. 6 mm focus of increased T2/FLAIR signal within the mid right cerebellar hemisphere may reflect gliosis from remote lacunar infarction however demonstrates a somewhat atypical appearance. Confirmation with a follow-up brain MRI with contrast could be considered. 4. 10 mm ovoid cystic lesion of the left nasopharynx. -tele to monitor for any arrhythmias -neuro checks Q4H -lopressor 50mg po BID -ASA, plavix, statin -neurology consult -U/S carotids -MRA head, attention [place] -echo -trend troponin -PT/OT consult DVT Prophylaxis -lovenox Disposition admit tele Full Code Pt reports is to follow with PCP at [facility] in [place], pt hasn't been seen yet. Pt hasn't been seen by PCP for years Pt was seen with Dr Medina. See addendum Attending Addendum: The patient was seen and examined in ER H/O HTN on no medication and heavy smoker and does not want ot quit. Admitted with Hypertensive emergency and stroke like symptoms Feels better during my exam O/E Hemodynamically stable Chest-clear to ausucltate bilaterally Heart-regular Extremities-negative for edema Labs and Imaging studies were reviewed Agree with the assessment and plan. Dr Winston Medina Resuscitation Status Full code VTE Prophylaxis Will order VTE Prophylaxis: Yes Physical Exam (per Admitting): General Appearance: WD/WN, no apparent distress Head: normocephalic, atraumatic Eyes: normal inspection, PERRL, EOMI, sclerae normal ENT: hearing grossly normal, pharynx normal, + pertinent finding (mucous membranes moist) Neck: supple, no JVD, trachea midline Respiratory/Chest: lungs clear, normal breath sounds, no respiratory distress Cardiovascular: regular rate, rhythm, no murmur Abdomen/GI: normal bowel sounds, non tender, soft Extremities/Musculoskelatal: normal capillary refill, no pedal edema, non- tender Neurologic/Psych: alert, normal mood/affect, oriented x 3, + pertinent finding (no facial drooping. clear speech, tongue midline, ROM bilateral arms and legs intact. 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 5/5 strength bilateral arms and extremities at this time. negative romberg. with walking pt with staggered gait and rightward drift.) Skin: normal color, warm/dry Hospital Course RIGHT SIDED WEAKNESS/HYPERTENSIVE EMERGENCY -Resolved Pt with hx untreated HTN, smoker who woke up at 4am today with R arm and R leg weakness with waxing and waning symptoms throughout the day. Denies KAPLAN, CP. In ER hypertensive at 258/134. Pt given labetalol 20mg IV, hydralazine 10mg IV and hydralazine 20mg IV. BP down to 195/112. Tele to monitor for any arrhythmias Neuro checks Q4H-no neurological deficit noted Lopressor 50mg po BID to control BP and PRN medication as well Started on ASA, Plavix, statin Neurology consult CT,MRI,MRA ,Carotid US-no definite stroke except mild Lacunae ECHO;There is severe concentric left ventricular hypertrophy. * Ejection Fraction = 60-65%. * Grade I diastolic dysfunction, (abnormal relaxation pattern). * No significant valvular pathology. -PT/OT consult -ambulating well -clinically stable to go home HTN Stated on Lopressor may need to add more meds BP is reasonably controlled Lisinopril added Tobacco Use Disorder 2 PPD for many years Does not want to quit but will reduce the numbers DVT Prophylaxis -Lovenox Full Code DISPOSITION Likely discharged today Total time spent on discharge = 35 minutes This includes examination of the patient, discharge planning, medication reconciliation, and communication with other providers. Discharge Instructions Date of Service Nov 24, 2017. Admission Reason for Admission: Htn, Right Sided Weakness Discharge Discharge Diagnosis / Problem: Possible Stroke-no residual effect,Hypertensive Urgency Discharge Goals Goal(s): Prevent Disease Progression Activity Recommendations Activity Limitations: resume your previous activity . Instructions / Follow-Up Instructions / Follow-Up Dr Santana on 11/29/17 at 10:[address] Mack (neurology ) on 01/07/18 at 9: 05 AM Current Hospital Diet Patient's current hospital diet: AHA Diet (Heart Healthy) Discharge Diet Recommended Diet: AHA Diet (Heart Healthy), Low Sodium Diet (2gm Na) Pending Studies Studies pending at discharge: no Laboratory Results Hemoglobin A1c Test 11/23/17 05:21 Range/Units Estimated Average Glucose 128 mg/dl Hemoglobin A1c 6.1 H 4.5-5.6 % Lipid Panel Test 11/23/17 05:21 Range/Units Triglycerides Level 129 0-150 mg/dl Cholesterol Level 173 0-200 mg/dl HDL Cholesterol 40 mg/dl Cholesterol/HDL Ratio 4.3 LDL Cholesterol, Calculated 107 mg/dl Medical Emergencies . Who to Call and When: Medical Emergencies: If at any time you feel your situation is an emergency, please call 911 immediately. . Non-Emergent Contact Non-Emergency issues call your: Primary Care Provider . Past History Medical & Surgical History: (1) HTN (hypertension) (2) Right sided weakness (3) Hypertensive urgency . "Provider Documentation" section prepared by Matt Medina. . <Electronically signed by Matt Medina M.D.> Signed: 11/25/17 1151 Additional Copies To Caden Santana M.D.
--- NOTE | 2017-11-27 13:12 | EDITING REQUIRED CODING QUERY ---
CODING QUERY To promote full compliance with coding requirements relating to patient care, provider participation is requested in all cases of compliance examiner uncertainty. Please assist us with the question(s) below: Coding Question(s): CONFLICTING DOCUMENTATION: DISCHARGE SUMMARY states: Possible stroke NEURO CONSULT states: The images are pretty unimpressive and what we saw on the MRI was probably the effects of old infarctions of a small vessel type in the hemispheres rather than true new infarctions. He probably had a TIA. Please assign the appropriate diagnosis below. Thank you. Physician's Response(s): Likely TIA,Possible Stroke ruled out-As per Neurology Thank you Chiqui Grimm Principal Diagnosis: "_that condition established after study, to be chiefly responsible for occasioning the admission of the patient to the hospital for care." Co-Existing Principal Diagnosis: "_when two or more diagnoses equally meet the criteria for principal diagnosis as determined by the circumstances of admission, diagnostic work up, and/or therapy provided, and the Alphabetic Index, Tabular List, or another coding guideline does not provide sequencing direction, any one of the diagnoses may be sequenced first." "When the physician has documented what appears to be a current diagnosis in the body of the record, but has not included the diagnosis in the final diagnostic statement, the physician should be asked whether the diagnosis should be added." (Source Coding [facility] 2 QTR90. p3-4)
== END 2017-11-25 14:30 | disposition home or self-care (01) | DRG 69 ==
LOC: C.EDB 14:51 → C.2T 17:15 → ENRESERV 17:43
PROVIDERS: ADMIT Internal Medicine; ATTEND Internal Medicine
DX: G45.9 Transient cerebral ischemic attack, unspecified (principal); I16.1 Hypertensive emergency; R90.89 Other abnormal findings on diagnostic imaging of central nervous system; I10 Essential (primary) hypertension; F17.210 Nicotine dependence, cigarettes, uncomplicated; F17.220 Nicotine dependence, chewing tobacco, uncomplicated; Z82.49 Family history of ischemic heart disease and other diseases of the circulatory system; Z83.3 Family history of diabetes mellitus